=== PATIENT | male | born 1965 | race Caucasian/White ===

== ENCOUNTER 2025-04-05 14:30 | Inpatient (IN) | payer MEDICAID ==
[~2025-04-05] VITALS: Ht 177.8 cm; Wt 88.0 kg
--- NOTE | 2025-04-05 14:42 | Physician Documentation ---
Addendum CHIEF COMPLAINT/HPI: The patient is a 60-year-old male who suffered a syncopal episode while at [facility] it approximately 1:40 p.m. today. He is on Eliquis for a right lower extremity DVT since about December of this year. He also has a pacemaker. EMS was summoned and noted a right-sided facial droop. He also has left arm and left leg weakness. REVIEW OF SYSTEMS: Unable to obtain due to acuity PHYSICAL EXAMINATION: Vitals and nursing note reviewed. Constitutional: General: Patient is awake, alert, oriented x 4 in no acute distress and well appearing. Speech is clear and lucid. Appearance: Normal appearance. Patient is not ill-appearing, toxic-appearing or diaphoretic. HENT: Head: Normocephalic and atraumatic. Mouth: Mucous membranes are moist. Pharynx: Oropharynx is clear. Eyes: General: No scleral icterus. Extraocular Movements: Extraocular movements intact. Pupils: Pupils are equal, round, and reactive to light. Neck: Supple, no Kernig or Brudzinski sign. Cardiovascular: Rate and Rhythm: Normal rate and regular rhythm. Heart sounds: No murmur heard. Pulmonary: Effort: No respiratory distress. Breath sounds: No wheezing, rhonchi or rales. Abdominal: General: There is no distension. Palpations: There is no fluid wave, hepatomegaly or mass. Tenderness: There is no abdominal tenderness. There is no guarding. Musculoskeletal: General: No swelling or deformity. Skin: Coloration: Skin is not jaundiced. Findings: No erythema or rash. Neurological examination: GCS: E-4, V-5, M-6 Motor strength: Left arm, left leg weakness. Just able to resist gravity in the left leg. Left hand machine engineer noticeably weaker than right-hand machine engineer Sensory: Intact maintainer central office: Right-sided facial droop Equilibratory intact MEDICAL DECISION MAKING: This 60-year-old male presents with symptoms of stroke. He is taking Eliquis. He presents approximately 45 minutes after onset of symptoms. I promptly initiated the level one stroke alert. Tele neurology recommended admitting the patient for further stroke workup. Departure Disposition: ADMITTED INPATIENT Admission Level of Care: Neuro with Tele Impression: Primary Impression: Cerebrovascular accident Condition: Stable DE MARGO CARREON MD Apr 05, 2025 14:42
[2025-04-05 14:47] LABS: MEAN PLATELET VOLUME 7.7 FL (7.4-10.4); RED CELL DISTRIBUTION WIDTH 14.3 % (11.5-14.5)
[2025-04-05 14:54] LABS: CREATININE 1.48 MG/DL (0.60-1.10); TOTAL CARBON DIOXIDE 25.6 MMOL/L (24-32); eGFR 48 ML/MIN
--- NOTE | 2025-04-05 15:01 | RADIOLOGY REPORT ---
EXAM: CT CT STROKE ALERT INDICATION: Stroke Alert TECHNIQUE: CT of the head without intravenous contrast. Radiation Dose : 1. Head: CT Dose: CTDI volume is 58.4 mGy. Dose-length product is 1073.2 mGy*cm The dose indicators for CT are the volume Computed Tomography (CT) Dose Index (CTDIvol) and the Dose Length Product (DLP), and are measured in units of mGy and mGy-cm, respectively. These indicators are not patient dose, but values generated from the CT scanner acquisition factors. The report includes radiation exposure data for exposures received during this examination. COMPARISON: None FINDINGS: There is no evidence of acute intracranial hemorrhage, extra-axial collection, mass effect, midline shift, herniation or hydrocephalus. The ventricles, sulci and cisterns are age appropriate. The moulton-white differentiation is intact. The visualized paranasal sinuses and mastoid air cells are clear. The surrounding soft tissues and osseous structures are unremarkable. IMPRESSION: No acute intracranial abnormality. Radiation optimization: All CT scans at this facility use at least one of these dose optimization techniques: automated exposure control? mA and/or kV adjustment per patient size (includes targeted exams where dose is matched to clinical indication)? or iterative reconstruction.
--- NOTE | 2025-04-05 15:08 | RADIOLOGY REPORT ---
CHEST RADIOGRAPH Indication: Stroke Alert Technique: Single frontal view of the chest was obtained COMPARISON: CT CT STROKE ALERT on DOS: 04/05/25 FINDINGS: Lines and Tubes: Left chest wall pacemaker Lungs: Clear Pleura: No effusion. No pneumothorax. Cardiomediastinal contours: Unremarkable Bones: Unremarkable IMPRESSION: No acute disease.
[2025-04-05 15:12] LABS: APTT 25 SECONDS (22-32); INR 1.1 INR
--- NOTE | 2025-04-05 15:15 | RADIOLOGY REPORT ---
EXAM: CT CTA NECK/HEAD CLINICAL HISTORY: CVA TECHNIQUE: CT angiogram of the head and neck was performed without and with intravenous contrast. 3D MIP reconstructed images were created and archived on the PACS system. This exam was performed according to our departmental dose optimization program. Up-to-date CT equipment and radiation dose reduction techniques are utilized as appropriate. CTDI: 23.8+ 14.73; DLP: 589.24 COMPARISON: CT CT STROKE ALERT on DOS: 04/05/25 FINDINGS: CTA head: The distal internal carotid, vertebral, and basilar arteries are patent without focal narrowing or occlusion. The anterior, middle, and posterior cerebral arteries are patent without focal narrowing. No aneurysm or arteriovenous malformation is identified. CTA neck: The aortic arch vessel origins are widely patent. Mild mixed plaque in the aortic arch. The common carotid and cervical portions of the internal carotid and vertebral arteries are patent without focal narrowing according to NASCET criteria. Dominant right vertebral artery. No aneurysm, AVM, or dissection is identified. The cervical soft tissues are unremarkable. Small Mastoid air cell effusions. Mild mucosal thickening of the bilateral maxillary sinuses. The lung apices are clear. Moderate multilevel cervical spondylosis. There is a battery pack in the left anterior chest wall and left-sided pacer leads. IMPRESSION: 1. Widely patent arteries in the head and neck without large vessel occlusion, significant stenosis, aneurysm, dissection, or AVM.
[2025-04-05] MEDS: ondansetron/PF 4mg/2ml inj IV ONE (15:19)
--- NOTE | 2025-04-05 15:23 | ELECTROCARDIOGRAPH REPORT ---
[facility] Test Date: 2025-04-05 Test Time: 15:19:29 Pat Name: VINICIUS CARDONA Department: [facility] Patient ID: [id number] Room: ORTHO 4012 Gender: M Chef Manager: : 1965 Requested By: MARGO DOLL Order Number: [id number] Reading MD: Dr. Roosevelt Zhou Measurements Intervals [place] Rate: 60 P: 0 [place]: 159 QRS: -60 QRSD: 106 T: 60 QT: 401 QTc: 401 Interpretive Statements Atrial-paced complexes Left anterior fascicular block Abnormal R-wave progression, late transition ST elevation, consider inferior injury Electronically Signed On 04-05-2025 18:50:[address] Roosevelt Zhou Please click the below link to view image of tracing.
--- NOTE | 2025-04-05 15:43 | [facility] CONSULT REPORT ---
[facility] Procedure Note [facility] Procedure Note Consult [facility] Note # Demographics Consult Type: Acute Stroke Level 1 (0-4.5 hrs) Patient Location: Emergency Room First Name: BRENDAN Last Name: VINICIUS Date of : 1965 Age: 60 Gender: Male Facility: [facility] Time of Initial Page (): 04/05/2025 14:48 First Contact with Site (): 04/05/2025 14:49 # HPI Chief Complaint: - weakness (focal) History: 60 M presented with L sided weakness at after an episode of syncope. He said he was at [facility] when he had an episode of syncope followed by L sided weakness. He did not have any weakness prior to falling. He is endorsing double vision. He feels numbness on the L and is having some trouble concentrating. He is on Eliquis and is compliant with his medications. Last Known Normal: 1:40 PM # Scores Time of exam and NIHSS (): 04/05/2025 15:05 Level of Consciousness 1a: [0] = Alert; keenly responsive LOC Questions 1b: [0] = Answers both questions correctly LOC Commands 1c: [0] = Performs both tasks correctly Best Gaze 2: [0] = Normal Visual 3: [0] = No visual loss Facial Palsy 4: [2] = Partial paralysis Motor Arm Left 5a: [2] = Some effort against gravity Motor Arm Right 5b: [0] = No drift Motor Leg Left 6a: [3] = No effort against gravity Motor Leg Right 6b: [0] = No drift Limb Ataxia 7: [0] = Absent Sensory 8: [1] = Ixnx-[id number]-qvmillpl sensory loss Best Language 9: [0] = No aphasia Dysarthria 10: [0] = Normal Extinction and Inattention 11: [0] = No abnormality NIHSS Total: 8 # Exam SBP: 141 DBP: 73 # PMH-FH-SH Past Medical History: DVT Medications: - NOAC # Data Head CT: - no bleed - per radiologist read CTA Head: - no large vessel occlusion - per radiologist read CTA Neck: - patent vessels - per radiologist read # Assessment Impression: - Ischemic Stroke (Acute) # Plan Thrombolytic/Intervention: NOT IV Thrombolysis or IA Intervention candidate Thrombolytic Exclusion (< 3 hour window): - actively on NOAC Intraarterial Exclusion: - no large vessel occlusion (LVO) Labs: - CBC - comprehensive metabolic panel - hemoglobin A1c - lipid panel - ua - TSH - troponin Imaging: (urgency: routine): - MRI Brain without contrast Diagnostic Test: - echo with bubble study Therapy/Evaluation: - PT/OT evaluation - NPO until swallow evaluation Medication: - anticoagulation with NOAC - start statin with goal of LDL < 70 Other: - If patient has any neurological deterioration please call me back immediately - telemetry monitoring - permissive hypertension - I have discussed my recommendations with the referring provider - LDL < 70 Disposition: admit # Logistics Attestation of consult completion: The patient is located at: [facility]. Facility staff participated in the visit. I performed this telemedicine visit from my offsite office utilizing interactive 2 way audio and visual telecommunication technology at the request of the onsite emergency room provider. Total time spent in telemedicine encounter: I spent 30 minutes reviewing clinical data and/or imaging, obtaining history, examining the patient, communicating with the onsite care team, and in preparation of this report. # Demographics First Name: BRENDAN Last Name: VINICIUS Facility: [facility] Electronically signed at 04/05/2025 15:42 ([place] Time) by Jose Justin MD Neuro Consult Order placed for: Yes JOSE JUSTIN MD Apr 05, 2025 15:43
[2025-04-05] MEDS ORDERED: magnesium sulf-water 2g/50mL 50 ML IV PRN (16:10)
[2025-04-05] MEDS ORDERED: magnesium hydroxide 30ml (MOM) UD suspension PO PRN (16:10)
[2025-04-05] MEDS ORDERED: ondansetron/PF 4mg/2ml inj IV PRN (16:10)
[2025-04-05] MEDS ORDERED: potassium Cl 40MEQ/1/2NS 520ml 520 ML IV PRN (16:10)
[2025-04-05] MEDS ORDERED: acetaminophen 650mg rectal suppository RC PRN (16:10)
[2025-04-05] MEDS ORDERED: potassium Cl 20 mEq SR tablet PO PRN ×2 (16:10)
[2025-04-05] MEDS ORDERED: mag hydrox/Alum hydrox/simeth 30ml oral suspension PO PRN (16:10)
[2025-04-05] MEDS ORDERED: bisacodyl 10mg suppository rectal RC PRN (16:10)
[2025-04-05] MEDS ORDERED: ondansetron 4mg rapidly disintigrating tab PO PRN (16:10)
[2025-04-05] MEDS ORDERED: magnesium Cl slow-release 64mg tablet PO PRN (16:10)
[2025-04-05] MEDS ORDERED: magnesium sulf-water 4G/100mL 100 ML IV PRN (16:10)
[2025-04-05 17:16] LABS: CHOL/HDL RATIO 3.0 (0.00-4.99); LDL CHOLESTEROL 70 MG/DL (50-100)
--- NOTE | 2025-04-05 17:44 | CARDIOLOGY REPORT ---
APPROVED REPORT EXAM: Comprehensive 2D, Doppler, and color-flow Echocardiogram with saline. Patient Location: ED3 Blood Pressure: 135/72 mmHg Heart Rate: 60 bpm Rhythm: NSR Indications Syncope CVA/TIA Pacemaker Tile Presser is Dr. Perdomo in [place] No previous echo 2D Dimensions LA Diam 3.0 cm IVSd 1.1 (0.7-1.1cm) LVDd 4.3 cm PWd 1.1 (0.7-1.1cm) IVSs 1.3 (0.8-1.2cm) LVDs 2.8 (2.5-4.0cm) Aortic Root(2D) 3.3 cm PWs 1.2 (0.8-1.2cm) LVOT Diameter 2.14 (1.8-2.4cm) LVEF(%) 65.0 (>50%) Ao Asc Diam. 3.40 cm IVC 14.20 mm FS (%) 35.3 % SV 52.6 ml CO 3.2 L/min M-Mode Dimensions MV EPSS 1.1 (<0.5cm) Aortic Valve AoV Peak Saurabh. 162.6 cm/s AoV VTI 29.4 cm AO Peak GR. 10.6 mmHg AO Mean GR. 5 mmHg LVOT VTI 16.84 cm LVOT Peak Saurabh. 110.4 cm/s YAYA(VTI)/BSA 2.05 cm2/m2 YAYA (VTI) 2.05 cm2 AV DI 0.57 % Mitral Valve MV E Velocity 56.2 cm/s MV Peak Gr. 2 mmHg MV DECEL TIME 240 ms MV A Velocity 69.8 cm/s MV PHT 52 ms E/A Ratio 0.8 MVA (PHT) 4.23 cm2 MV VMax 77.7 cm/s TDI Medial E' P. V 8.43 cm/s E/Medial E' 6.7 Tricuspid Valve TR P. Velocity 216 cm/s RAP ESTIMATE 10 mmHg TR Peak Gr. 19 mmHg RVSP 29 mmHg Pulmonary Vein S1 Velocity 38.7 cm/s D2 Velocity 28.9 cm/s PVa Velocity 28.9 cm/s PVa Duration 116 msec LEFT VENTRICLE Normal LV size and wall thickness. Overall systolic function is normal. LVEF is 60%. RIGHT VENTRICLE RV appears mildly dilated with normal contractility. Pacemaker wire in right heart. ATRIA The left atrium size is normal. Saline study was performed with 2 IV injections of 10 ccs of agitated normal saline at rest, with cough, and with valsalva. Negative saline study for right to left flow. AORTIC VALVE Trileaflet AV appears sclerotic without stenosis. Mild insufficiency. MITRAL VALVE MV is thickened with mild annular thickening and no stenosis. Trace mitral regurgitation. TRICUSPID VALVE The tricuspid valve is normal in structure. Trace tricuspid regurgitation. PULMONIC VALVE The pulmonary valve is normal in structure. Trace pulmonic insufficiency. GREAT VESSELS The aortic root is normal in size. The IVC is normal in size and collapses >50% with inspiration. PERICARDIUM There is no pericardial effusion. Other Information Study Quality: Adequate Conclusion Normal LV size and wall thickness. Overall systolic function is normal. LVEF is 60%. RV appears mildly dilated with normal contractility. Pacemaker wire in right heart. The left atrium size is normal. Saline study was performed with 2 IV injections of 10 ccs of agitated normal saline at rest, with cough, and with valsalva. Negative saline study for right to left flow. Trileaflet AV appears sclerotic without stenosis. Mild insufficiency. MV is thickened with mild annular thickening and no stenosis. Trace mitral regurgitation. The tricuspid valve is normal in structure. Trace tricuspid regurgitation. The pulmonary valve is normal in structure. Trace pulmonic insufficiency. There is no pericardial effusion.
[2025-04-05 18:00] VITALS: BP 141/75; PULSE 60; RESP 13; TEMP 97.6; O2SAT 100
--- NOTE | 2025-04-05 18:40 | HISTORY AND PHYSICAL-Residence ---
History & Physical Providers to CC Resident Creating Document: MICHAELA GARCIA, RES ~ History of Present Illness Reason for Admit\Complaint: Acute ischemic stroke History of Present Illness The patient is a 60-year-old male with past medical history of hypertension, CKD stage 3, cervical stenosis, sick sinus syndrome SP ppm placement, DVT, was brought to the ED by EMS from [facility]. The patient only remembers bits and pieces of what happened today. He remembers walking out of [facility], felt dizzy and tripped over something, manage to get to his truck, drove for about 20 ft but felt dizzy which is why he parked and called for help. He also reported having pounding headache and blurry vision, both of which are getting better now. He was unable to feel or move his left arm and leg. Allergies: Coded Allergies: codeine (Verified Allergy, Severe, HIVES, 04/05/25) Uncoded Allergies: TAPE (Allergy, Unknown, RASH, 04/05/25) Past Medical History Past Medical History Hypertension CKD stage 3 Unspecified thyroid issue Sick sinus syndrome s/p permanent pacemaker placement DVT in December, Skin cancers History of [place] when he was 35, no stents placed Past Surgical History Surgical History Comment ACL repair right knee Achilles tendon repair Left middle finger amputation Tonsillectomy Back surgery Permanent pacemaker placement in December, Esophageal dilation x3 Family history: Grandmother-lung cancer, was a smoker Mother-CKD Past Social History Social History Comment Patient moved to [place] in August,. Currently living with some friends in [place]. PCP - [facility] Institutional Cook - Dr. Perdomo in [place] Follows up with a classroom assistant, ?Dr. Aggarwal in [place] Also follows up with [facility] for cervical stenosis and is scheduled to follow up with a neurologist Used to follow up with a alliance director before he moved up here Ambulates independently without assistance Substance use history: Never smoker. Quit drinking alcohol since December,. Was only an occasional drinker before that. Denies other illicit drug abuse. ROS ROS Constitutional: No fever, dizziness, weakness. no change in appetite/weight HEENT: Reports blurring of the vision, No sore throat, epistaxis, tinnitus Cardiovascular: No chest pain/discomfort, palpitations. No pedal edema Respiratory: No sob, cough,, hemoptysis Gastrointestinal: No abdominal pain, nausea, vomiting. No diarrhea, constipation, melena. Genitourinary: No frquency, urgency, incontinence, nocturia. No dysuria, hematuria Musculoskeletal: No arthralgia, myalgia Endocrine: No fatigue, polydipsia, polyuria. No heat or cold intolerance Neurologic: Reports headache, dizziness, weakness, numbness and tingling of left leg and arm Psychiatric: No hallucinations/delusions, no anhedonia, no suicidal ideation Hematologic: No bleeding or bruises Exam Vitals: Vital Signs Date Time Temp Pulse Resp B/P (MAP) Pulse Ox O2 Delivery O2 Flow Rate FiO2 04/05/25 18:00 97.6 60 13 141/75 (97) 100 Room Air 04/05/25 15:41 0 General: Elderly male, alert and oriented x4, not in acute distress Head: Normocephalic with an atraumatic Eyes: Pupils- 3mm, reacting to light, conjunctiva- anicteric Nose and throat: No polyps, septum- normal, no mucosal ulcers, moist mucous membranes Neck: Supple, no lymphadenopathy, no carotid bruit Respiratory: No use of accessory muscles of respiration, Bilateral normal vesicular breath sounds heard. 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 Skin: warm and dry, no rash, no purpura Neuro: MENTAL STATUS: AAOx3 LANG/SPEECH: Fluent, intact naming, repetition & comprehension CRANIAL NERVES: II: Pupils equal and reactive, no RAPD, visual field blurry with decreased peripheral vision III, IV, : EOM intact, no gaze preference or deviation V: normal on right side, numbness on left side VII: Left-sided facial droop VIII: normal hearing to speech MOTOR: 5/5 in both right upper and lower extremities, 4/5 in left hand, forearm, 3/5 in left shoulder and arm, 3/5 in left lower extremity REFLEXES: 2/4 in right upper and lower extremities, diminished reflexes on left side SENSORY: Normal to touch, temperature & pin prick in right upper and lower extremities and right side of the trunk, diminished sensation on the left Gait not tested Diagnostic Data Last Recorded Lab Results: 04/05/25 1435 04/05/25 1435 Diagnostic Data: Laboratory Tests Test 04/05/25 14:35 Prothrombin Time 11.1 SECONDS (9.0-12.0) INR International Normalized Ratio 1.1 INR Activated Partial Thromboplast Time 25 SECONDS (22-32) Coagulation Comments Advance Care Planning Advanced Care plannin - 30 Minutes Additional Plan The patient is a 60-year-old male with past medical history of hypertension, CKD stage 3, DVT, sick sinus syndrome s/p ppm, presented to the ED with symptoms of stroke. He is being admitted into the hospital for further evaluation and management. Plan: Left-sided weakness Acute ischemic stroke NIHSS 8 CT head negative for acute intracranial abnormalities. CTA head and neck showed no large vessel occlusion. Tele neurology consultation taken, recommended MRI brain without contrast, echocardiogram with bubble study. Permissive hypertension till 24-48 hours. Follow up with HB A1c, LDL. Continue home Eliquis and start atorvastatin. Continue physical therapy. NPO until swallow evaluation. Depression and fall precautions. Neuro checks q.4h. History of DVT 12/2024 Continue Eliquis 5 mg b.i.d. Continue follow up with the classroom assistant. Hypertension Permissive hypertension till 180/110 mmHg for next 24-48 hours. Unspecified thyroid condition Follow up with TSH. CKD stage 3 GFR 48, creatinine 1.48. Continue to monitor kidney function. Sick sinus syndrome s/p permanent pacemaker placement Continue follow up with the atomic fuel assembler. Heart rate currently 60, sinus. Code Status: Full code DVT Prophylaxis: Eliquis Analgesia/Sedation: Acetaminophen Lines/Tubes: PIV Nutrition: NPO till swallow evaluation PT: Ordered Prognosis: Guarded Disposition: We will admit the patient into medical [facility]ohan. Follow up with MRI. Continue Eliquis. Michaela Garcia MD Internal Medicine Resident PGY-2 The patient was seen, examined and discussed with the attending physician, Dr. Gongora. Date of Service: Apr 05, 2025 Billing Provider: RYDER GONGORA MD,MICHAELA COOK, RES Apr 05, 2025 18:39
[2025-04-05] MEDS: normal saline 1000ml 1,000 ML IV SCH (19:58)
[2025-04-05 20:00] VITALS: BP_SYST 116; BP_SYST 99; BP_DIAS 53; BP_DIAS 61; PULSE 64; PULSE 67; RESP 15; O2SAT 96
[2025-04-05] MEDS: docusate sod 100mg capsule PO SCH (20:00)
[2025-04-05] MEDS: K and/or MAG REPLACEMENT MC SCH (20:00)
[2025-04-05 20:50] LABS: LEUKOCYTE ESTERASE ,URINE NEGATIVE (Neg); NITRITES, URINE NEGATIVE (Neg); OCCULT BLOOD,URINE NEGATIVE (Neg)
[2025-04-05 20:56] LABS: URINE AMPHETAMINE SCREEN NEGATIVE (Neg); URINE BARBITUATE SCREEN NEGATIVE (Neg); URINE BENZODIAZEPINES SCREEN NEGATIVE (Neg); URINE CANNABINOID SCREEN NEGATIVE (Neg); URINE COCAINE SCREEN NEGATIVE (Neg); URINE METHADONE SCREEN NEGATIVE (Neg); URINE OPIATE SCREEN NEGATIVE (Neg); URINE PHENCYCLIDINE SCREEN NEGATIVE (Neg)
[2025-04-05 21:01] LABS: UA COLLECTION TYPE NON-SPECIFIED
[2025-04-05] MEDS ORDERED: TAMS-55 (21:17)
[2025-04-05] MEDS ORDERED: ATOR40TA72 PO (21:17)
[2025-04-05] MEDS ORDERED: SERT-433 PO (21:17)
[2025-04-05] MEDS ORDERED: ACET-75 (21:17)
[2025-04-05] MEDS ORDERED: GABA300T28 (21:17)
[2025-04-05] MEDS ORDERED: LOSA50TA64 PO (21:17)
[2025-04-05] MEDS ORDERED: PANT40TA54 PO (21:17)
[2025-04-05] MEDS ORDERED: MECL-302 (21:17)
[2025-04-05] MEDS ORDERED: APIX5TAB3 PO (21:17)
[2025-04-05 22:00] VITALS: BP 116/53; PULSE 67; RESP 11; TEMP 97.2; O2SAT 98
[2025-04-06] VITALS (7 sets, daily range): BP systolic 93–124; BP diastolic 52–76; PULSE 60–64; RESP 14–18; TEMP 97.8–98.9; O2SAT 95–98
[2025-04-06 06:20] LABS: MEAN PLATELET VOLUME 8.6 FL (7.4-10.4); RED CELL DISTRIBUTION WIDTH 14.2 % (11.5-14.5)
[2025-04-06 06:50] LABS: CREATININE 1.50 MG/DL (0.60-1.10); PHOSPHORUS 4.0 MG/DL (2.3-4.5); TOTAL CARBON DIOXIDE 21.4 MMOL/L (24-32); eCRCL 53 ML/MIN; eGFR 48 ML/MIN
[2025-04-06] MEDS ORDERED: GABA300T28 PO (07:37)
[2025-04-06] MEDS ORDERED: TAMS-55 PO (07:37)
--- NOTE | 2025-04-06 08:01 | ELECTROCARDIOGRAPH REPORT ---
[facility] Test Date: 2025-04-06 Test Time: 07:40:07 Pat Name: VINICIUS CARDONA Department: ORTHO 4S Room: [place] [address] A Gender: M Director Compensation: : 1965 Requested By: MARGO DOLL Order Number: [id number] Reading MD: Dr. JAREK Mercedes Measurements Intervals [place] Rate: 62 P: 0 [place]: 201 QRS: -54 QRSD: 110 T: 27 QT: 407 QTc: 414 Interpretive Statements Atrial-paced complexes Left anterior fascicular block Abnormal R-wave progression, late transition Electronically Signed On 04-06-2025 16:50:[address] JAREK Mercedes Please click the below link to view image of tracing.
--- NOTE | 2025-04-06 11:46 | PROGRESS NOTE- Residence ---
Progress Note - Resident Providers to CC Resident Creating Document: MICHAELA GARCIA, RES ~ Antibiotic Timeout Antibiotic Ordered?: No Subjective The patient was seen and examined at bedside today. He does not have any complaints. His vision has improved but is still blurry. He is able to lift his left arm but has not completely regained his function. No acute events overnight. MRI could not be done today as the DART nurse was not available to check his pacemaker. Objective Vital Signs Date Time Temp Pulse Resp B/P (MAP) Pulse Ox O2 Delivery O2 Flow Rate FiO2 04/06/25 10:00 97.8 60 15 115/62 (79) 97 Room Air 04/06/25 08:26 0.0 Result Diagram: 04/06/25 0549 04/06/25 0549 Elderly male, alert and oriented x4, not in acute distress Head: Normocephalic with an atraumatic Eyes: Pupils- 3mm, reacting to light, conjunctiva- anicteric Nose and throat: No polyps, septum- normal, no mucosal ulcers, moist mucous membranes Neck: Supple, no lymphadenopathy, no carotid bruit Respiratory: No use of accessory muscles of respiration, Bilateral normal vesicular breath sounds heard. 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 Skin: warm and dry, no rash, no purpura Neuro: MENTAL STATUS: AAOx3 LANG/SPEECH: Fluent, intact naming, repetition & comprehension CRANIAL NERVES: II: Pupils equal and reactive, visual field blurry with decreased peripheral vision, improved from yesterday III, IV, : EOM intact, no gaze preference or deviation V: normal on right side, numbness on left side VII: Left-sided facial droop VIII: normal hearing to speech MOTOR: 5/5 in both right upper and lower extremities, 4/5 in left hand, forearm, 3/5 in left shoulder and arm, 3/5 in left lower extremity REFLEXES: 2/4 in right upper and lower extremities, diminished reflexes on left side SENSORY: Normal to touch, temperature & pin prick in right upper and lower extremities and right side of the trunk, diminished sensation on the left Gait not tested Coagulation Studies Laboratory Tests Test 04/05/25 14:35 Prothrombin Time 11.1 SECONDS (9.0-12.0) INR International Normalized Ratio 1.1 INR Activated Partial Thromboplast Time 25 SECONDS (22-32) Coagulation Comments Assessment Assessment The patient is a 60-year-old male with past medical history of hypertension, CKD stage 3, DVT, sick sinus syndrome s/p ppm, presented to the ED with symptoms of stroke. He is being admitted into the hospital for further evaluation and management. Plan Plan Left hemiparesis Acute ischemic stroke NIHSS 8 CT head negative for acute intracranial abnormalities. CTA head and neck showed no large vessel occlusion. Tele neurology consultation taken, recommended MRI brain without contrast, echocardiogram with bubble study. Permissive hypertension till 24-48 hours. Follow up with HB A1c, LDL. Continue home Eliquis and start atorvastatin 40 mg daily. Blood pressures are currently soft. Started the patient on NS at 70 ml/hr to maintain blood pressures. PRN meclizine for dizziness and vertigo. Continue physical therapy. Speech therapy done - cleared for regular textured diet. Depression and fall precautions. Neuro checks q.4h. History of DVT 12/2024 Continue Eliquis 5 mg b.i.d. Continue follow up with the strategy execution consultant. Hypertension Permissive hypertension till 180/110 mmHg for next 24 hours. Unspecified thyroid condition TSH with in normal range. Continue outpatient follow up. CKD stage 3 GFR 48, creatinine 1.50. Continue to monitor kidney function. Sick sinus syndrome s/p permanent pacemaker placement Continue follow up with the windsmith. Heart rate currently 60, sinus. Code Status: Full code DVT Prophylaxis: Eliquis Analgesia/Sedation: Acetaminophen Lines/Tubes: PIV Nutrition: NPO till swallow evaluation PT: Post acute care Prognosis: Guarded Disposition: We will admit the patient into [facility]. Follow up with MRI. Continue Eliquis. Michaela Garcia MD Internal Medicine Resident PGY-2 The patient was seen, examined and discussed with the attending physician, Dr. Gongora. Date of Service: Apr 06, 2025 Billing Provider: RYDER GONGORA MD,MICHAELA COOK, RES Apr 06, 2025 11:46
[2025-04-06] MEDS: pantoprazole 40mg Tablet.DR PO SCH (11:48)
[2025-04-07 05:00] VITALS: BP 114/78; PULSE 62; RESP 17; TEMP 98.2; O2SAT 96
[2025-04-07 06:05] LABS: MEAN PLATELET VOLUME 7.9 FL (7.4-10.4); RED CELL DISTRIBUTION WIDTH 14.3 % (11.5-14.5)
[2025-04-07 06:29] LABS: CREATININE 1.67 MG/DL (0.60-1.10); PHOSPHORUS 3.7 MG/DL (2.3-4.5); TOTAL CARBON DIOXIDE 29.1 MMOL/L (24-32); eCRCL 48 ML/MIN; eGFR 42 ML/MIN
[2025-04-07 10:00] VITALS: BP 129/75; PULSE 60; RESP 16; TEMP 98.6; O2SAT 96
[2025-04-07 10:16] VITALS: BP_SYST 112; BP_SYST 122; BP_SYST 129; BP_DIAS 60; BP_DIAS 68; BP_DIAS 75; PULSE 60; PULSE 61; PULSE 64
--- NOTE | 2025-04-07 15:22 | RADIOLOGY REPORT ---
EXAM: MR MRI HEAD HISTORY: cva TECHNIQUE: Multiplanar and multisequence MR imaging of the head was performed. COMPARISON: CT CTA NECK/HEAD on DOS: 04/05/25, CT CT STROKE ALERT on DOS: 04/05/25 FINDINGS: The ventricles and subarachnoid spaces are normal in size and configuration. Brain parenchyma is normal in signal. There is no midline shift or mass effect. The vascular flow-voids are unremarkable. Diffusion weighted imaging is not indicative of acute or recent infarct. Bilateral mastoid air cell effusions. Mucous retention cyst or polyp in the right maxillary sinus IMPRESSION: 1. No acute or recent infarct.
--- NOTE | 2025-04-07 16:25 | PROGRESS NOTE- Residence ---
Progress Note - Resident Providers to CC Resident Creating Document: MICHAELA GARCIA, RES ~ Antibiotic Timeout Antibiotic Ordered?: No Subjective The patient was seen and examined at bedside today. He does not have any complaints. His vision and left-sided weakness has improved significantly compared to admission. He is to get an MRI today. He still complains of headache. Tramadol ordered. Objective Vital Signs Date Time Temp Pulse Resp B/P (MAP) Pulse Ox O2 Delivery O2 Flow Rate FiO2 04/07/25 10:16 60 129/75 (93) 64 122/68 (86) 61 112/60 (77) 04/07/25 10:00 98.6 16 96 Room Air 04/07/25 08:00 0.0 Result Diagram: 04/07/2552204/07/25522 Elderly male, alert and oriented x4, not in acute distress Head: Normocephalic with an atraumatic Eyes: Pupils- 3mm, reacting to light, conjunctiva- anicteric Nose and throat: No polyps, septum- normal, no mucosal ulcers, moist mucous membranes Neck: Supple, no lymphadenopathy, no carotid bruit Respiratory: No use of accessory muscles of respiration, Bilateral normal vesicular breath sounds heard. 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 Skin: warm and dry, no rash, no purpura Neuro: MENTAL STATUS: AAOx3 LANG/SPEECH: Fluent, intact naming, repetition & comprehension CRANIAL NERVES: II: Pupils equal and reactive, visual field blurry with decreased peripheral vision, improved from yesterday III, IV, : EOM intact, no gaze preference or deviation V: normal on right side, numbness on left side VII: Left-sided facial droop VIII: normal hearing to speech MOTOR: 5/5 in both right upper and lower extremities, 4/5 in left hand, forearm, 4/5 in left shoulder and arm, 3/5 in left lower extremity REFLEXES: 2/4 in right upper and lower extremities, diminished reflexes on left side SENSORY: Normal to touch, temperature & pin prick in right upper and lower extremities and right side of the trunk, diminished sensation on the left Gait not tested Coagulation Studies Laboratory Tests Test 04/05/25 14:35 Prothrombin Time 11.1 SECONDS (9.0-12.0) INR International Normalized Ratio 1.1 INR Activated Partial Thromboplast Time 25 SECONDS (22-32) Coagulation Comments Assessment Assessment The patient is a 60-year-old male with past medical history of hypertension, CKD stage 3, DVT, sick sinus syndrome s/p ppm, presented to the ED with symptoms of stroke. He is being admitted into the hospital for further evaluation and management. Plan Plan Left hemiparesis TIA, ABCD2 score 6 (High 2 day stroke risk) Acute ischemic stroke, ruled out NIHSS 8 CT head negative for acute intracranial abnormalities. CTA head and neck showed no large vessel occlusion. MRI head showed no acute or recent infarct. Echo showed no right to left flow. LDL 70, HbA1c 5.2. Continue home Eliquis and start atorvastatin 40 mg daily. Blood pressures are currently soft. Started the patient on NS at 70 ml/hr to maintain blood pressures. Orthostatic vitals positive - 1L of NS bolus ordered. PRN meclizine for dizziness and vertigo. Continue physical therapy. Speech therapy done - cleared for regular textured diet. Depression and fall precautions. Neuro checks q.4h. History of DVT 12/2024 Continue Eliquis 5 mg b.i.d. Continue follow up with the imaging system administrator. Hypertension Blood pressures are currently soft. Hold all blood pressure medications. Orthostatic hypotension 1L NS bolus ordered. Re-check tomorrow. Unspecified thyroid condition TSH with in normal range. Continue outpatient follow up. CKD stage 3 GFR 42, creatinine 1.67. Continue to monitor kidney function. Sick sinus syndrome s/p permanent pacemaker placement Continue follow up with the building surveyor. Heart rate currently 60, sinus. Code Status: Full code DVT Prophylaxis: Eliquis Analgesia/Sedation: Acetaminophen Lines/Tubes: PIV Nutrition: 2 gm Na restriction diet PT: Post acute care Prognosis: Guarded Disposition: Continue PT. Possible discharge tomorrow. Monitor orthostatic vitals. Michaela Garcia MD Internal Medicine Resident PGY-2 The patient was seen, examined and discussed with the attending physician, Dr. Gongora. Date of Service: Apr 07, 2025 Billing Provider: RYDER GONGORA MD,MICHAELA COOK, RES Apr 07, 2025 16:25
[2025-04-07] MEDS: normal saline 1000ml 1,000 ML IV ONE (17:03)
[2025-04-07 18:00] VITALS: BP 111/72; PULSE 60; RESP 16; TEMP 97.7; O2SAT 99
[2025-04-07 20:00] VITALS: BP_SYST 112; BP_SYST 113; BP_DIAS 62; PULSE 65; PULSE 66; RESP 16; O2SAT 95
[2025-04-07 22:00] VITALS: BP 138/79; PULSE 63; RESP 14; TEMP 97; O2SAT 98
[2025-04-08] VITALS (7 sets, daily range): BP systolic 102–146; BP diastolic 55–84; PULSE 55–72; RESP 13–16; TEMP 96.8–97.8; O2SAT 96–100
[2025-04-08] MEDS: nicotine 14mg patch - 24hr TD ONE (08:29)
--- NOTE | 2025-04-08 14:55 | PROGRESS NOTE- Residence ---
Progress Note - Resident Providers to CC Resident Creating Document: SARAI HERNANDEZ RES ~ Antibiotic Timeout Antibiotic Ordered?: No Subjective The patient was seen and examined at bedside today. Patient has occasional headache and is still feeling left-sided tingling and numbness, but states almost completely weakness recover. No other symptoms reported since situation. Objective Vital Signs Date Time Temp Pulse Resp B/P (MAP) Pulse Ox O2 Delivery O2 Flow Rate FiO2 04/08/25 10:05 64 143/83 (103) 63 132/74 (93) 64 130/73 (92) 04/08/25 10:00 97.0 15 100 Room Air 04/08/25 08:00 0.0 Result Diagram: 04/07/2552204/07/25 0523 Awake , alert, and oriented x4 HEENT: Atraumatic, normocephalic, EOMI, anicteric sclera ; moist mucous membranes, normal peripheral vision Neck: Trachea midline. Supple, full range of motion, no JVD Cardiac: Regular rhythm, regular rate with no murmurs all over the precordium. Respiratory: Equal breath sounds bilaterally, no tachypnea, no wheezing ,rub or rales, Chest wall is symmetric and without deformity. Gastrointestinal: Abdomen symmetric, non-distended, soft, non-tender, normal bowel sounds x4 quadrant, normoactive, no hepatosplenomegaly Musculoskeletal: No pedal edema Neurological: Mental status exam: alert and consciousness, orientation, memory, speech - Cranial nerve test: Cranial nerves 2-12 intact - Motor system: Normal Nutrition, normal tone, left arm drip, strength is preserved in all other segments, no involuntary movements - Sensory system: Intact - Reflex testing: Biceps, triceps and knee reflexes 2+ - Cerebellar: Normal Skin: Warm and dry Coagulation Studies Laboratory Tests Test 04/05/25 14:35 Prothrombin Time 11.1 SECONDS (9.0-12.0) INR International Normalized Ratio 1.1 INR Activated Partial Thromboplast Time 25 SECONDS (22-32) Coagulation Comments Assessment Assessment The patient is a 60-year-old male with past medical history of hypertension, CKD stage 3, DVT, sick sinus syndrome s/p ppm, presented to the ED with symptoms of stroke. He is being admitted into the hospital for further evaluation and management. Plan Plan 1. TIA, ABCD2 score 6 Stroke-mimic is possible Acute ischemic stroke, ruled out Orthostatic hypotension CT head negative for acute intracranial abnormalities. CTA head and neck showed no large vessel occlusion. MRI head showed no acute or recent infarct. Echo showed no right to left flow Almost completely strength recover, left side paresthesia still present Plan Continue home Eliquis and atorvastatin 40 mg daily. Restarted on Losartan 50mg daily PRN meclizine for dizziness and vertigo. Continue compression stocks Continue physical therapy Awaiting placement 2. History of DVT 12/2024 Continue Eliquis 5 mg b.i.d. Continue follow up with the dean of graduate studies. 3. Hypertension Continue losartan 50 mg after permissive hypertension 4. CKD stage 3b GFR 42, creatinine 1.67., stable since admission Avoid nephrotoxic medications Monitor daily 5. Sick sinus syndrome s/p permanent pacemaker placement Controlled heart rate Continue outpatient follow up with hvac r tech. Code Status: Full code DVT Prophylaxis: Eliquis Analgesia/Sedation: Acetaminophen Lines/Tubes: PIV Nutrition: 2 gm Na restriction diet PT: Post acute care Prognosis: Guarded Disposition: Continue PT. Awaiting placement. Resident attestation The above note has been reviewed and supervised by a senior resident PGY2/PGY3 The patient was seen, examined and discussed with the attending physician, Dr. Tarango. Date of Service: Apr 08, 2025 Billing Provider: RYDER TARANGO MD SOBXUAN,SARAI, RES Apr 08, 2025 14:55
--- NOTE | 2025-04-08 22:50 | CONSULTATION REPORT ---
History of Present Illness Providers to CC ~ Reason for Admit\Admit Dx: Acute ischemic stroke Allergies: Coded Allergies: codeine (Verified Allergy, Severe, HIVES, 04/05/25) Uncoded Allergies: TAPE (Allergy, Unknown, RASH, 04/05/25) Home Medications Home Medications Active Flomax* (Tamsulosin HCl) 0.4 Mg Cap.sr.24h 0.4 Mg PO DAILY 30 Days Gabapentin ER (Gabapentin) 300 Mg Tab.er.24h 300 Mg PO TID 30 Days Reported Atorvastatin Calcium 40 Mg Tablet 40 Tab PO DAILY Losartan Potassium 50 Mg Tablet 50 Tab PO DAILY Sertraline HCl 50 Mg Tablet 50 Tab PO DAILY Pantoprazole Sodium 40 Mg Tablet.dr 40 Tab PO DAILY Acetaminophen 500 Mg Tablet 500 Q6H Eliquis (Apixaban) 5 Mg Tablet 1 Tab PO BID Physical Exam Last Vital Signs Recorded: Temperature: 97.0, Source: Temporal, Heart Rate: 61, Respiratory Rate: 16, BP: 142/82, Pulse Oximetry: 97, Weight: 88.000 Results Diagram Lab Result Diagram: 04/07/2552204/07/25522 Assessment/Plan Additional Plan [place] [facility] Note # Demographics Consult Type: General Neurology Patient Location: Inpatient First Name: VINICIUS Last Name: BRENDAN Date of : 1965 Age: 60 Gender: Male Facility: [facility] Time of Initial Page ( Time): 04/08/2025 22:25 First Contact with Site ( Time): 04/08/2025 22:27 Phone Only Consult: 60-year-old man that presented with some left-sided weakness. I spoke to the provider who indicated that pieces MRI brain was negative but the patient is still symptomatic. I discuss potentially repeating the MRI brain tomorrow sometimes the initial Imaging negative and I also recommended getting an MRI of the cervical spine to make sure that there is not a central cord, disc herniation or foraminal stenosis issue as a cause for the patient's symptoms. The provider was in agreement with this plan Phone Agreement: - phone consult deemed mutually sufficient for patient care # HPI History: 60-year-old man that presented with some left-sided weakness. I spoke to the provider who indicated that pieces MRI brain was negative but the patient is still symptomatic. I discuss potentially repeating the MRI brain tomorrow as sometimes the initial imaging can be negative and I also recommended getting an MRI of the cervical spine to make sure that there is not a central cord, disc herniation or foraminal stenosis issue as a cause for the patient's symptoms. The provider was in agreement with this plan # Plan Other: - If patient has any neurological deterioration please call back immediately # Demographics First Name: VINICIUS Last Name: BRENDAN Facility: [facility] CHRISTINE GEE Jr., MD Apr 08, 2025 22:50
[2025-04-09 06:00] VITALS: BP 142/84; PULSE 62; RESP 16; TEMP 97.9; O2SAT 97
[2025-04-09 08:00] VITALS: BP_SYST 118; BP_SYST 89; BP_SYST 96; BP_DIAS 50; BP_DIAS 61; BP_DIAS 63; PULSE 61; PULSE 62; PULSE 64
[2025-04-09 09:04] LABS: MEAN PLATELET VOLUME 8.5 FL (7.4-10.4); RED CELL DISTRIBUTION WIDTH 14.3 % (11.5-14.5)
[2025-04-09 09:17] LABS: CREATININE 1.41 MG/DL (0.60-1.10); TOTAL CARBON DIOXIDE 28.2 MMOL/L (24-32); eCRCL 57 ML/MIN; eGFR 51 ML/MIN
[2025-04-09 10:00] VITALS: BP 118/63; PULSE 63; RESP 15; TEMP 98.3; O2SAT 98
[2025-04-09] MEDS ORDERED: HYDROcodone/acetaminophen 5mg/325mg tablet PO PRN (10:55)
[2025-04-09] MEDS: normal saline 1000ml 1,000 ML IV ONE (11:23)
--- NOTE | 2025-04-09 13:13 | RADIOLOGY REPORT ---
MR cervical spine HISTORY: persistent left side neurological symptoms TECHNIQUE: MR was performed with a surface coil at 1.5 T magnet. Sagittal, axial and coronal T1 and T2-weighted images were obtained. FINDINGS: Reversal of the normal cervical lordotic curvature . At C2-3 no narrowing of the central canal and neural foramina At C3-4 loss of disc height and signal intensity. Effacement of the anterior cord surface by bulging disc and osteophytes C4-5 loss of disc height and signal intensity. Effacement of the anterior cord surface by bulging disc and osteophytes. C5-6 loss of disc height and signal intensity. Effacement of the thecal sac by bulging disc and osteophytes C6-7 loss of disc height and signal intensity. Effacement of the thecal sac by bulging disc and osteophytes C7-T1 no narrowing of the central canal and neural foramina Cord normal in size and signal intensity IMPRESSION: 1. Diffuse degenerative disc disease is present. At C3-C4 and C4-C5 there is effacement of the anterior cord surface by bulging disc and osteophytes. At C5- C6 and C6-C7 there is effacement of the thecal sac by bulging disc and osteophytes. No cord edema or myelomalacia is present on this study
--- NOTE | 2025-04-09 13:32 | RADIOLOGY REPORT ---
MR brain HISTORY: persistent left side neurological symptoms TECHNIQUE: MR was performed with a surface coil at 1.5 T magnet. Sagittal, axial and coronal T1 and T2-weighted images were obtained. FINDINGS: No areas of restricted diffusion on diffusion-weighted images. No areas of abnormal T2 star signal hypointensity on gradient echo images On FLAIR imaging sequences no areas of T2 signal hyperintensity. Ventricles normal in size and midline in position. No extra-axial fluid collections. Orbits paranasal sinuses sella and cerebellopontine angles unremarkable in appearance. There is mucosal thickening of the mastoid sinus air cells IMPRESSION: 1. There is no acute intracranial pathology in the brain. 2. There is bilateral mastoid sinus disease.
--- NOTE | 2025-04-09 17:52 | PROGRESS NOTE- Residence ---
Progress Note - Resident Providers to CC Resident Creating Document: MICHAELA GARCIA, RES ~ Antibiotic Timeout Antibiotic Ordered?: No Subjective The patient was seen and examined at bedside today. He still continues to have headaches and dizziness. Repeat MRI brain was negative for infarcts and MRI C spine showed diffuse degenerative disease. Tele neuro consult requested again. Objective Vital Signs Date Time Temp Pulse Resp B/P (MAP) Pulse Ox O2 Delivery O2 Flow Rate FiO2 04/09/25 14:23 15 04/09/25 10:00 98.3 63 118/63 (81) 98 Room Air 04/08/25 20:00 0.0 Result Diagram: 04/09/25 0801 04/09/25 0801 Elderly male, alert and oriented x4, not in acute distress Head: Normocephalic with an atraumatic Eyes: Pupils- 3mm, reacting to light, conjunctiva- anicteric Nose and throat: No polyps, septum- normal, no mucosal ulcers, moist mucous membranes Neck: Supple, no lymphadenopathy, no carotid bruit Respiratory: No use of accessory muscles of respiration, Bilateral normal vesicular breath sounds heard. 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 Skin: warm and dry, no rash, no purpura Neuro: MENTAL STATUS: AAOx3 LANG/SPEECH: Fluent, intact naming, repetition & comprehension CRANIAL NERVES: II: Pupils equal and reactive, visual field blurry with decreased peripheral vision, improved from yesterday III, IV, : EOM intact, no gaze preference or deviation V: normal on right side, numbness on left side VII: Left-sided facial droop VIII: normal hearing to speech MOTOR: 5/5 in both right upper and lower extremities, 4/5 in left hand, forearm, 4/5 in left shoulder and arm, 3/5 in left lower extremity REFLEXES: 2/4 in right upper and lower extremities, diminished reflexes on left side SENSORY: Normal to touch, temperature & pin prick in right upper and lower extremities and right side of the trunk, diminished sensation on the left Gait not tested Coagulation Studies Laboratory Tests Test 04/05/25 14:35 Prothrombin Time 11.1 SECONDS (9.0-12.0) INR International Normalized Ratio 1.1 INR Activated Partial Thromboplast Time 25 SECONDS (22-32) Coagulation Comments Assessment Assessment The patient is a 60-year-old male with past medical history of hypertension, CKD stage 3, DVT, sick sinus syndrome s/p ppm, presented to the ED with symptoms of stroke. He is being admitted into the hospital for further evaluation and management. Plan Plan Left hemiparesis TIA, ABCD2 score 6 (High 2 day stroke risk) Acute ischemic stroke, ruled out Cervical degenerative disease Repeat MRI head showed no changes. MRI C-spine showed diffuse degenerative disc disease. At C3-C4 and C4-C5, there is effacement of anterior cord surface by bulging disc and osteophytes. At C5- C6 and C6-C7 there is effacement of the thecal sac by bulging disc and osteophytes. Repeat tele neuro consultation requested. Awaiting recommendations. CT head on 04/05/2025 negative for acute intracranial abnormalities. CTA head and neck showed no large vessel occlusion. MRI head on 04/07/2025 showed no acute or recent infarct. Echo showed no right to left flow. LDL 70, HbA1c 5.2. Continue home Eliquis and start atorvastatin 40 mg daily. Continue physical therapy. Speech therapy done - cleared for regular textured diet. Aspiration and fall precautions. Neuro checks q.4h. History of DVT 12/2024 Continue Eliquis 5 mg b.i.d. Continue follow up with the manufacturing quality technician. Hypertension Blood pressures are currently soft. Hold all blood pressure medications. Orthostatic hypotension 1 L NS bolus ordered today. Repeat blood pressure is stable. Follow up with a repeat orthostatic vitals. Continue NS at 70 ml/hr. Continue compression stockings. PRN meclizine for dizziness and vertigo. We will consider starting the patient on fludrocortisone if he continues to have orthostatic hypotension. Unspecified thyroid condition TSH with in normal range. Continue outpatient follow up. CKD stage 3 GFR 51, creatinine 1.41. Continue to monitor kidney function. Sick sinus syndrome s/p permanent pacemaker placement Continue follow up with the concrete batcher. Heart rate currently in 60s, sinus. Code Status: Full code DVT Prophylaxis: Eliquis Analgesia/Sedation: Acetaminophen Lines/Tubes: PIV Nutrition: 2 gm Na restriction diet PT: Post acute care Prognosis: Guarded Disposition: Continue PT. Awaiting recommendations of tele neurology consultation. Follow up with orthostatic vitals. Michaela Garcia MD Internal Medicine Resident PGY-2 The patient was seen, examined and discussed with the attending physician, Dr. Gongora. Date of Service: Apr 09, 2025 Billing Provider: RYDER GONGORA MD,MICHAELA COOK, RES Apr 09, 2025 17:52
[2025-04-09 18:00] VITALS: BP 134/80; PULSE 61; RESP 16; TEMP 98.3; O2SAT 98
[2025-04-09 20:00] VITALS: BP_SYST 107; BP_SYST 138; BP_SYST 149; BP_DIAS 52; BP_DIAS 78; BP_DIAS 86; PULSE 60; PULSE 61; PULSE 63
[2025-04-09 22:00] VITALS: BP 149/86; PULSE 63; RESP 15; TEMP 97.8; O2SAT 97
[2025-04-10] VITALS (7 sets, daily range): BP systolic 93–147; BP diastolic 52–82; PULSE 61–68; RESP 12–22; TEMP 97.4–98.9; O2SAT 94–98
[2025-04-10] MEDS: normal saline 1000ML IV soln IVB ONE (04:27)
--- NOTE | 2025-04-10 08:53 | [facility] CONSULT REPORT ---
[facility] Procedure Note [facility] Procedure Note Consult [facility] Note # Demographics Consult Type: Follow-Up Phone Call Patient Location: Inpatient First Name: malou Last Name: francisco Date of : 1965 Age: 60 Gender: Male Facility: [facility] Time of Initial Page (): 04/10/2025 08:24 First Contact with Site (): 04/10/2025 08:25 # HPI History: On noac for dvt here with syncope and left sided weakness. MRI brain negative for acute stroke. MRI c-spine showing disc disease. # Data Head CT: - no bleed - per radiologist read CTA Head: - no large vessel occlusion - per radiologist read MRI: - no acute ischemia - per radiologist read mri cspine with degenerative disc disease. # Assessment Impression: - Other Syncope workup recommended Continue noac discuss mri c-spine with spinal surgery team. Culd be mr negative stroke or component of left sided wekaness from the spinal disease. # Plan Diagnostic Test: - echo without bubble study Medication: - start statin with goal of LDL < 70 - anticoagulation with NOAC Other: - If patient has any neurological deterioration please call me back immediately - consult neurosurgery - I have discussed my recommendations with the referring provider # Logistics Attestation of consult completion: The patient is located at: [facility]. I performed this phone consultation from my offsite office Total time spent in telemedicine encounter: I spent 5 minutes in reviewing clinical data and/or imaging, obtaining history, communicating with the onsite care team, and in preparation of this report. # Demographics First Name: malou Last Name: francisco Facility: [facility] Electronically signed at 04/10/2025 08:52 () by Paul Matthew MD Neuro Consult Order placed for: Yes LIGIA MATTHEW MD Apr 10, 2025 08:53
--- NOTE | 2025-04-10 18:09 | PROGRESS NOTE- Residence ---
Progress Note - Resident Providers to CC Resident Creating Document: MICHAELA GARCIA, RES ~ Antibiotic Timeout Antibiotic Ordered?: No Subjective The patient was seen and examined at bedside today. He continues to have headaches and dizziness. Orthostatic vitals are positive. The patient was evaluated by Dr. Suh, neurosurgeon who recommended outpatient follow up for neurosurgery evaluation. Started the patient on p.o. steroids. Objective Vital Signs Date Time Temp Pulse Resp B/P (MAP) Pulse Ox O2 Delivery O2 Flow Rate FiO2 04/10/25 09:51 61 04/10/25 08:00 16 94 Room Air 04/10/25 08:00 121/61 (81) 109/58 (75) 93/54 (67) 04/10/25 06:00 97.4 04/08/25 20:00 0.0 Result Diagram: 04/09/2580004/09/25 08 Elderly male, alert and oriented x4, not in acute distress Head: Normocephalic with an atraumatic Eyes: Pupils- 3mm, reacting to light, conjunctiva- anicteric Nose and throat: No polyps, septum- normal, no mucosal ulcers, moist mucous membranes Neck: Supple, no lymphadenopathy, no carotid bruit Respiratory: No use of accessory muscles of respiration, Bilateral normal vesicular breath sounds heard. 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 Skin: warm and dry, no rash, no purpura Neuro: MENTAL STATUS: AAOx3 LANG/SPEECH: Fluent, intact naming, repetition & comprehension CRANIAL NERVES: II: Pupils equal and reactive, visual field blurry with decreased peripheral vision, improved from yesterday III, IV, : EOM intact, no gaze preference or deviation V: normal on right side, numbness on left side VII: Left-sided facial droop VIII: normal hearing to speech MOTOR: 5/5 in both right upper and lower extremities, 4/5 in left hand, forearm, 4/5 in left shoulder and arm, 4/5 in left lower extremity REFLEXES: 2/4 in right upper and lower extremities, 2/4 reflexes on left side SENSORY: Normal to touch, temperature & pin prick in right upper and lower extremities and right side of the trunk, diminished sensation on the left Plantars negative and pronator drift absent Gait not tested Coagulation Studies Laboratory Tests Test 04/05/25 14:35 Prothrombin Time 11.1 SECONDS (9.0-12.0) INR International Normalized Ratio 1.1 INR Activated Partial Thromboplast Time 25 SECONDS (22-32) Coagulation Comments Assessment Assessment The patient is a 60-year-old male with past medical history of hypertension, CKD stage 3, DVT, sick sinus syndrome s/p ppm, presented to the ED with symptoms of stroke. He is being admitted into the hospital for further evaluation and management. Plan Plan Left hemiparesis TIA, ABCD2 score 6 MRI negative stroke cannot be ruled out Cervical degenerative disease Possible vertebro basilar insufficiency Repeat MRI head showed no changes. MRI C-spine showed diffuse degenerative disc disease. At C3-C4 and C4-C5, there is effacement of anterior cord surface by bulging disc and osteophytes. At C5- C6 and C6-C7 there is effacement of the thecal sac by bulging disc and osteophytes. Neurology recommended to continue the same treatment and follow up with neurosurgery. Dr. Suh, neurosurgeon was consulted who recommended outpatient follow up for cervical surgery. He suspects myelopathy but unsure why the clinical presentation is not correlating to his symptoms. CT head on 04/05/2025 negative for acute intracranial abnormalities. CTA head and neck showed no large vessel occlusion. MRI head on 04/07/2025 showed no acute or recent infarct. Echo showed no right to left flow. LDL 70, HbA1c 5.2. Continue home Eliquis and start atorvastatin 40 mg daily. Continue physical therapy. Speech therapy done - cleared for regular textured diet. Aspiration and fall precautions. Neuro checks q.4h. History of DVT 12/2024 Continue Eliquis 5 mg b.i.d. Continue follow up with the senior technical project manager. Hypertension Blood pressures are currently soft. Hold all blood pressure medications. Orthostatic hypotension Started the patient on prednisone PO. 1 L NS bolus ordered again today. Continue NS at 70 ml/hr. Continue compression stockings. Lavonne TID meclizine for dizziness and vertigo. Unspecified thyroid condition TSH with in normal range. Continue outpatient follow up. CKD stage 3 GFR 51, creatinine 1.41. Continue to monitor kidney function. Sick sinus syndrome s/p permanent pacemaker placement Continue follow up with the collections associate. Heart rate currently in 60s, sinus. Code Status: Full code DVT Prophylaxis: Eliquis Analgesia/Sedation: Acetaminophen Lines/Tubes: PIV Nutrition: Regular diet PT: Post acute care Prognosis: Guarded Disposition: Continue PT. Awaiting recommendations of tele neurology consultation. Follow up with orthostatic vitals. Michaela Garcia MD Internal Medicine Resident PGY-2 The patient was seen, examined and discussed with the attending physician, Dr. Gongora. Date of Service: Apr 10, 2025 Billing Provider: RYDER GONGORA MD,MICHAELA COOK, RES Apr 10, 2025 18:09
[2025-04-11] VITALS (7 sets, daily range): BP systolic 112–158; BP diastolic 62–92; PULSE 58–72; RESP 16; TEMP 97.5–98.1; O2SAT 95–97
[2025-04-11 07:44] LABS: MEAN PLATELET VOLUME 8.5 FL (7.4-10.4); RED CELL DISTRIBUTION WIDTH 13.7 % (11.5-14.5)
[2025-04-11 07:57] LABS: CREATININE 1.35 MG/DL (0.60-1.10); TOTAL CARBON DIOXIDE 26.3 MMOL/L (24-32); eCRCL 59 ML/MIN; eGFR 54 ML/MIN
[2025-04-11] MEDS: midodrine 5mg tablet PO SCH (12:06)
--- NOTE | 2025-04-11 13:08 | PROGRESS NOTE- Residence ---
Progress Note - Resident Providers to CC Resident Creating Document: MICHAELA GARCIA, RES ~ Antibiotic Timeout Antibiotic Ordered?: No Subjective The patient was seen and examined at bedside today. He continues to be orthostatic and has been feeling dizzy. PT recommends rehab. Referrals sent to out of the area rehab facilities. Objective Vital Signs Date Time Temp Pulse Resp B/P (MAP) Pulse Ox O2 Delivery O2 Flow Rate FiO2 04/11/25 08:33 16 04/11/25 07:17 Room Air 04/11/25 06:00 97.9 62 143/77 (99) 97 04/10/25 20:00 0.0 Result Diagram: 04/11/25 0645 04/11/25 0654 Elderly male, alert and oriented x4, not in acute distress Head: Normocephalic with an atraumatic Eyes: Pupils- 3mm, reacting to light, conjunctiva- anicteric Nose and throat: No polyps, septum- normal, no mucosal ulcers, moist mucous membranes Neck: Supple, no lymphadenopathy, no carotid bruit Respiratory: No use of accessory muscles of respiration, Bilateral normal vesicular breath sounds heard. 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 Skin: warm and dry, no rash, no purpura Neuro: MENTAL STATUS: AAOx3 LANG/SPEECH: Fluent, intact naming, repetition & comprehension CRANIAL NERVES: II: Pupils equal and reactive, visual field blurry with decreased peripheral vision, improved from yesterday III, IV, : EOM intact, no gaze preference or deviation V: normal on right side, numbness on left side VII: Left-sided facial droop VIII: normal hearing to speech MOTOR: 5/5 in both right upper and lower extremities, 4/5 in left hand, forearm, 4/5 in left shoulder and arm, 4/5 in left lower extremity REFLEXES: 2/4 in right upper and lower extremities, 2/4 reflexes on left side SENSORY: Normal to touch, temperature & pin prick in right upper and lower extremities and right side of the trunk, diminished sensation on the left Plantars negative and pronator drift absent Gait not tested Coagulation Studies Laboratory Tests Test 04/05/25 14:35 Prothrombin Time 11.1 SECONDS (9.0-12.0) INR International Normalized Ratio 1.1 INR Activated Partial Thromboplast Time 25 SECONDS (22-32) Coagulation Comments Assessment Assessment The patient is a 60-year-old male with past medical history of hypertension, CKD stage 3, DVT, sick sinus syndrome s/p ppm, presented to the ED with symptoms of stroke. He is being admitted into the hospital for further evaluation and management. Plan Plan Left hemiparesis TIA, ABCD2 score 6 MRI negative stroke cannot be ruled out Cervical degenerative disease with myelopathy Possible vertebro basilar insufficiency Repeat MRI head showed no changes. MRI C-spine showed diffuse degenerative disc disease. At C3-C4 and C4-C5, there is effacement of anterior cord surface by bulging disc and osteophytes. At C5- C6 and C6-C7 there is effacement of the thecal sac by bulging disc and osteophytes. Neurology recommended to continue the same treatment and follow up with neurosurgery. Dr. Suh, neurosurgeon was consulted who recommended outpatient follow up for cervical surgery. He suspects myelopathy but unsure why the clinical presentation is not correlating to his symptoms. CT head on 04/05/2025 negative for acute intracranial abnormalities. CTA head and neck showed no large vessel occlusion. MRI head on 04/07/2025 showed no acute or recent infarct. Echo showed no right to left flow. LDL 70, HbA1c 5.2. Continue home Eliquis and start atorvastatin 40 mg daily. Continue physical therapy. Speech therapy done - cleared for regular textured diet. Aspiration and fall precautions. Neuro checks q.4h. History of DVT 12/2024 Continue Eliquis 5 mg b.i.d. Continue follow up with the forging machine hand. Hypertension Blood pressures are currently soft. Hold all blood pressure medications. Orthostatic hypotension Started the patient on midrodrine 10 mg TID. Continue prednisone. Continue NS at 70 ml/hr. Continue compression stockings and abdominal binder. Lavonne TID meclizine for dizziness and vertigo. Unspecified thyroid condition TSH with in normal range. Continue outpatient follow up. CKD stage 3 GFR 54, creatinine 1.35. Continue to monitor kidney function. Sick sinus syndrome s/p permanent pacemaker placement Continue follow up with the arts and crafts instructor. Heart rate currently in 60s, sinus. Code Status: Full code DVT Prophylaxis: Eliquis Analgesia/Sedation: Acetaminophen Lines/Tubes: PIV Nutrition: Regular diet PT: Post acute care Prognosis: Guarded Disposition: Continue PT. Continue monitoring orthostatic vitals. Pending placement. Michaela Garcia MD Internal Medicine Resident PGY-2 The patient was seen, examined and discussed with the attending physician, Dr. Gongora. Date of Service: Apr 11, 2025 Billing Provider: RYDER GONGORA MD,MICHAELA COOK, RES Apr 11, 2025 13:08
[2025-04-12 05:11] LABS: MEAN PLATELET VOLUME 8.4 FL (7.4-10.4); RED CELL DISTRIBUTION WIDTH 14.1 % (11.5-14.5)
[2025-04-12 05:30] LABS: CREATININE 1.38 MG/DL (0.60-1.10); TOTAL CARBON DIOXIDE 26.6 MMOL/L (24-32); eCRCL 58 ML/MIN; eGFR 52 ML/MIN
[2025-04-12 06:00] VITALS: BP 168/92; PULSE 57; RESP 14; TEMP 97.4; O2SAT 98
[2025-04-12 10:00] VITALS: BP 135/68; PULSE 65; RESP 14; TEMP 98.2; O2SAT 98
--- NOTE | 2025-04-12 16:59 | PROGRESS NOTE- Residence ---
Progress Note - Resident Providers to CC Resident Creating Document: MICHAELA GARCIA, RES ~ Antibiotic Timeout Antibiotic Ordered?: No Subjective The patient was seen and examined at bedside today. Complains of blurry vision and headache when moving his head side to side. Pending placement. Objective Vital Signs Date Time Temp Pulse Resp B/P (MAP) Pulse Ox O2 Delivery O2 Flow Rate FiO2 04/12/25 16:34 14 04/12/25 12:21 143 04/12/25 10:00 98.2 135/68 (90) 98 Room Air 04/11/25 20:00 0.0 Result Diagram: 04/12/2544204/12/25 044 Elderly male, alert and oriented x4, not in acute distress Head: Normocephalic with an atraumatic Eyes: Pupils- 3mm, reacting to light, conjunctiva- anicteric Nose and throat: No polyps, septum- normal, no mucosal ulcers, moist mucous membranes Neck: Supple, no lymphadenopathy, no carotid bruit Respiratory: No use of accessory muscles of respiration, Bilateral normal vesicular breath sounds heard. 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 Skin: warm and dry, no rash, no purpura Neuro: MENTAL STATUS: AAOx3 LANG/SPEECH: Fluent, intact naming, repetition & comprehension CRANIAL NERVES: II: Pupils equal and reactive, visual field blurry with decreased peripheral vision, improved from yesterday III, IV, : EOM intact, no gaze preference or deviation V: normal on right side, numbness on left side VII: Left-sided facial droop VIII: normal hearing to speech MOTOR: 5/5 in both right upper and lower extremities, 4/5 in left hand, forearm, 4/5 in left shoulder and arm, 4/5 in left lower extremity REFLEXES: 2/4 in right upper and lower extremities, 2/4 reflexes on left side SENSORY: Normal to touch, temperature & pin prick in right upper and lower extremities and right side of the trunk, diminished sensation on the left Plantars negative and pronator drift absent Gait not tested Coagulation Studies Laboratory Tests Test 04/05/25 14:35 Prothrombin Time 11.1 SECONDS (9.0-12.0) INR International Normalized Ratio 1.1 INR Activated Partial Thromboplast Time 25 SECONDS (22-32) Coagulation Comments Assessment Assessment The patient is a 60-year-old male with past medical history of hypertension, CKD stage 3, DVT, sick sinus syndrome s/p ppm, presented to the ED with symptoms of stroke. He is being admitted into the hospital for further evaluation and management. Plan Plan Left hemiparesis TIA, ABCD2 score 6 MRI negative stroke cannot be ruled out Cervical degenerative disease with myelopathy Possible vertebro basilar insufficiency Repeat MRI head showed no changes. MRI C-spine showed diffuse degenerative disc disease. At C3-C4 and C4-C5, there is effacement of anterior cord surface by bulging disc and osteophytes. At C5- C6 and C6-C7 there is effacement of the thecal sac by bulging disc and osteophytes. Neurology recommended to continue the same treatment and follow up with neurosurgery. Dr. Suh, neurosurgeon was consulted who recommended outpatient follow up for cervical surgery. He suspects myelopathy but unsure why the clinical presentation is not correlating to his symptoms. CT head on 04/05/2025 negative for acute intracranial abnormalities. CTA head and neck showed no large vessel occlusion. MRI head on 04/07/2025 showed no acute or recent infarct. Echo showed no right to left flow. LDL 70, HbA1c 5.2. Continue home Eliquis and start atorvastatin 40 mg daily. Continue physical therapy. Speech therapy done - cleared for regular textured diet. Aspiration and fall precautions. Neuro checks q.4h. Orthostatic hypotension Started the patient on midrodrine 10 mg TID. Continue prednisone. Continue NS at 70 ml/hr. Continue compression stockings and abdominal binder. Lavonne TID meclizine for dizziness and vertigo. History of DVT 12/2024 Continue Eliquis 5 mg b.i.d. Continue follow up with the credit associate. Hypertension Continue home losartan 50 mg daily. Unspecified thyroid condition TSH with in normal range. Continue outpatient follow up. CKD stage 3 GFR 52, creatinine 1.38. Continue to monitor kidney function. Sick sinus syndrome s/p permanent pacemaker placement Continue follow up with the rv repairer. Heart rate currently in 60s, sinus. Code Status: Full code DVT Prophylaxis: Eliquis Analgesia/Sedation: Acetaminophen Lines/Tubes: PIV Nutrition: Regular diet PT: Post acute care Prognosis: Guarded Disposition: Continue PT. Continue monitoring orthostatic vitals. Pending placement. Michaela Garcia MD Internal Medicine Resident PGY-2 The patient was seen, examined and discussed with the attending physician, Dr. Gongora. Date of Service: Apr 12, 2025 Billing Provider: RYDER GONGORA MD,MICHAELA COOK, RES Apr 12, 2025 16:58
[2025-04-12 18:00] VITALS: BP_SYST 119; BP_SYST 127; BP_DIAS 59; BP_DIAS 71; PULSE 73; PULSE 74; RESP 16; TEMP 97.9; TEMP 98; O2SAT 100; O2SAT 96
[2025-04-12] MEDS: PERFLUTREN PROTEIN-A MICROSPHR (Optison) 0.22 MG/ML 3ML VIAL IV ONE (20:12)
[2025-04-12 22:00] VITALS: BP_SYST 129; BP_SYST 134; BP_DIAS 69; BP_DIAS 75; PULSE 61; PULSE 69; RESP 15; TEMP 97.9; TEMP 98; O2SAT 97; O2SAT 98
[2025-04-13 06:00] VITALS: BP 161/86; PULSE 63; RESP 19; TEMP 97.6; O2SAT 97
[2025-04-13 06:59] LABS: CREATININE 1.32 MG/DL (0.60-1.10); TOTAL CARBON DIOXIDE 27.2 MMOL/L (24-32); eCRCL 61 ML/MIN; eGFR 55 ML/MIN
[2025-04-13 07:05] LABS: MEAN PLATELET VOLUME 8.4 FL (7.4-10.4); RED CELL DISTRIBUTION WIDTH 14.2 % (11.5-14.5)
[2025-04-13 10:00] VITALS: BP 134/76; PULSE 56; RESP 13; TEMP 97.7; O2SAT 98
--- NOTE | 2025-04-13 16:20 | PROGRESS NOTE- Residence ---
Progress Note - Resident Providers to CC Resident Creating Document: MICHAELA GARCIA, RES ~ Antibiotic Timeout Antibiotic Ordered?: No Subjective The patient was seen and examined at bedside today. Continues to have trouble with dizziness and orthostatic hypotension. Pending placement. Provided the patient with Dr. Suh's contact information so that he can set up an appointment with him after discharge. Objective Vital Signs Date Time Temp Pulse Resp B/P (MAP) Pulse Ox O2 Delivery O2 Flow Rate FiO2 04/13/25 09:23 62 04/13/25 09:23 16 04/13/25 06:00 97.6 161/86 (111) 97 Room Air 04/12/25 19:55 0 21 Result Diagram: 04/13/25 0602 04/13/25 0602 Elderly male, alert and oriented x4, not in acute distress Head: Normocephalic with an atraumatic Eyes: Pupils- 3mm, reacting to light, conjunctiva- anicteric Nose and throat: No polyps, septum- normal, no mucosal ulcers, moist mucous membranes Neck: Supple, no lymphadenopathy, no carotid bruit Respiratory: No use of accessory muscles of respiration, Bilateral normal vesicular breath sounds heard. 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 Skin: warm and dry, no rash, no purpura Neuro: MENTAL STATUS: AAOx3 LANG/SPEECH: Fluent, intact naming, repetition & comprehension CRANIAL NERVES: II: Pupils equal and reactive, visual field blurry with decreased peripheral vision, improved from yesterday III, IV, : EOM intact, no gaze preference or deviation V: normal on right side, numbness on left side VII: normal VIII: normal hearing to speech MOTOR: 5/5 in both right and left upper and lower extremities REFLEXES: 2/4 in right and left upper and lower extremities SENSORY: Normal to touch, temperature & pin prick Plantars negative and pronator drift absent Gait not tested Coagulation Studies Laboratory Tests Test 04/05/25 14:35 Prothrombin Time 11.1 SECONDS (9.0-12.0) INR International Normalized Ratio 1.1 INR Activated Partial Thromboplast Time 25 SECONDS (22-32) Coagulation Comments Assessment Assessment The patient is a 60-year-old male with past medical history of hypertension, CKD stage 3, DVT, sick sinus syndrome s/p ppm, presented to the ED with symptoms of stroke. He is being admitted into the hospital for further evaluation and management. Plan Plan Left hemiparesis Cervical degenerative disease with myelopathy Vertebro basilar insufficiency Possible TIA MRI negative stroke cannot be ruled out MRI C-spine showed diffuse degenerative disc disease. At C3-C4 and C4-C5, there is effacement of anterior cord surface by bulging disc and osteophytes. At C5- C6 and C6-C7 there is effacement of the thecal sac by bulging disc and osteophytes. Dr. Suh, neurosurgeon was consulted who recommended outpatient follow up for cervical surgery. He suspects myelopathy but unsure why the clinical presentation is not correlating to his symptoms. MRI head x2 negative for acute infarcts. CT head negative for acute intracranial abnormalities. CTA head and neck showed no large vessel occlusion. Echo showed no right to left flow. LDL 70, HbA1c 5.2. Continue home Eliquis and start atorvastatin 40 mg daily. Continue physical therapy. Speech therapy done - cleared for regular textured diet. Aspiration and fall precautions. Neuro checks q.4h. Orthostatic hypotension Discontinued tamsulosin and decreased the dose of losartan to 25 mg daily. Continue midrodrine 10 mg TID. If the patient's baseline blood pressures continue to be high, we will discontinue midodrine tomorrow. Continue prednisone, last date on 04/15/25. Start fludrocortisone from 04/16/25. Continue NS at 70 ml/hr. Continue compression stockings and abdominal binder. Lavonne TID meclizine for dizziness and vertigo. History of DVT 12/2024 Continue Eliquis 5 mg b.i.d. Continue follow up with the machine captain. Hypertension Decreased the dose of losartan to 25 mg daily. We will discontinue midodrine if blood pressures continue to be high tomorrow. Unspecified thyroid condition TSH with in normal range. Continue outpatient follow up. CKD stage 3 Continue to monitor kidney function. Sick sinus syndrome s/p permanent pacemaker placement Continue follow up with the floor space allocator. Heart rate currently in 60s, sinus. Code Status: Full code DVT Prophylaxis: Eliquis Analgesia/Sedation: Acetaminophen Lines/Tubes: PIV Nutrition: Regular diet PT: Post acute care Prognosis: Guarded Disposition: Continue PT. Continue monitoring orthostatic vitals. Pending placement. Michaela Garcia MD Internal Medicine Resident PGY-2 The patient was seen, examined and discussed with the attending physician, Dr. Gongora. Date of Service: Apr 13, 2025 Billing Provider: RYDER GONGORA MD,MICHAELA COOK, RES Apr 13, 2025 16:20
[2025-04-13 18:00] VITALS: BP 145/81; PULSE 63; RESP 15; TEMP 98.2; O2SAT 96
[2025-04-13 22:00] VITALS: BP 122/61; PULSE 61; RESP 14; TEMP 98.4; O2SAT 95
[2025-04-14 06:00] VITALS: BP 152/74; PULSE 71; RESP 17; TEMP 97; O2SAT 97
[2025-04-14 06:05] LABS: MEAN PLATELET VOLUME 8.9 FL (7.4-10.4); RED CELL DISTRIBUTION WIDTH 14.1 % (11.5-14.5)
[2025-04-14 06:32] LABS: CREATININE 1.32 MG/DL (0.60-1.10); TOTAL CARBON DIOXIDE 28.4 MMOL/L (24-32); eCRCL 61 ML/MIN; eGFR 55 ML/MIN
[2025-04-14] MEDS: midodrine 5mg tablet PO SCH (08:30)
--- NOTE | 2025-04-14 09:56 | PROGRESS NOTE- Residence ---
Progress Note - Resident Providers to CC Resident Creating Document: SHIVANI SCHOFIELD RES ~ Antibiotic Timeout Antibiotic Ordered?: No Subjective Patient was seen and examined bedside. He still complains of dizziness on standing up. He has left lower extremity weakness. He has no new overnight complaints. The patient refuses to go to a rehab facility out of the area. I have spoken to the hospice case manager and all the rehab facilities in the area have denied him. Objective Vital Signs Date Time Temp Pulse Resp B/P (MAP) Pulse Ox O2 Delivery O2 Flow Rate FiO2 04/14/25 08:33 Room Air 0.0 21 04/14/25 08:27 71 04/14/25 06:00 97.0 17 152/74 (100) 97 Result Diagram: 04/14/25 0521 04/14/25 0521 Awake , alert, and oriented x4, resting comfortably in the bed, in no acute distress HEENT: Atraumatic, normocephalic, EOMI, anicteric sclera ; pink conjunctiva, moist mucous membranes Neck: Trachea midline. Supple, full range of motion, no JVD Cardiac: Pacemaker present on left upper chest, Regular rhythm, regular rate with no murmurs all over the precordium. Respiratory: Equal breath sounds bilaterally, no tachypnea, no wheezing ,rub or rales, Chest wall is symmetric and without deformity. 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 Blurred vision with decreased peripheral vision which has improved from yesterday. No sensory deficit, 4/5 power in left lower extremity, 2/4 reflexes in right and left upper and lower extremities, Cranial nerves II-XII intact, Pronator drift absent Skin: Warm and dry Coagulation Studies Laboratory Tests Test 04/05/25 14:35 Prothrombin Time 11.1 SECONDS (9.0-12.0) INR International Normalized Ratio 1.1 INR Activated Partial Thromboplast Time 25 SECONDS (22-32) Coagulation Comments Assessment Assessment The patient is a 60-year-old male with past medical history of hypertension, CKD stage 3, DVT, sick sinus syndrome s/p ppm, presented to the ED with symptoms of stroke. He is being admitted into the hospital for further evaluation and management. Plan Plan Left hemiparesis Cervical degenerative disease with myelopathy Vertebro basilar insufficiency Possible TIA MRI negative stroke cannot be ruled out MRI C-spine showed diffuse degenerative disc disease. At C3-C4 and C4-C5, there is effacement of anterior cord surface by bulging disc and osteophytes. At C5- C6 and C6-C7 there is effacement of the thecal sac by bulging disc and osteophytes. Dr. Suh, neurosurgeon was consulted who recommended outpatient follow up for cervical surgery. He suspects myelopathy but unsure why the clinical presentation is not correlating to his symptoms. MRI head x2 negative for acute infarcts. CT head negative for acute intracranial abnormalities. CTA head and neck showed no large vessel occlusion. Echo showed no right to left flow. LDL 70, HbA1c 5.2. Continue home Eliquis and atorvastatin 40 mg daily. Continue physical therapy. Speech therapy done - cleared for regular textured diet. Aspiration and fall precautions. Neuro checks q.4h. He does not want to go to rehab out of the area, all rehab facilities within the area have denied him. Continue PT, we will plan for home with home health once he is cleared by PT with outpatient follow up with Dr. Suh Patient has history of homelessness temporarily, clinical social work aide was consulted Orthostatic hypotension Decreased dosage of midodrine 10 mg to 5 mg. If the patient's baseline blood pressures continues to be high, we will discontinue midodrine tomorrow. Continue losartan 25 mg Continue prednisone, last date on 04/15/25. Start fludrocortisone from 04/16/25. Continue NS at 70 ml/hr. Continue compression stockings and abdominal binder. Lavonne TID meclizine for dizziness and vertigo. History of DVT 12/2024 Continue Eliquis 5 mg b.i.d. Continue follow up with the equipment records supervisor. Hypertension Continue losartan 25 mg daily. Decreased dosage of midodrine 10 mg to 5 mg. If the patient's baseline blood pressures continues to be high, we will discontinue midodrine tomorrow Unspecified thyroid condition TSH with in normal range. Continue outpatient follow up. CKD stage 3 Continue to monitor kidney function. Sick sinus syndrome s/p permanent pacemaker placement Continue follow up with the forestry worker. Heart rate currently in 70s, sinus. Code Status: Full code DVT Prophylaxis: Eliquis Analgesia/Sedation: Acetaminophen Lines/Tubes: PIV Nutrition: Regular diet PT: Post acute care Prognosis: Guarded Disposition: Continue PT. Continue monitoring orthostatic vitals. Social sevices consult placed. He does not want to go to rehab out of the area and all rehab facilities within the area have denied him. Will discharge home with home health once PT clears. Resident MD attestation: The patient note has been reviewed and supervised by senior residents PGY-2/ PGY-3. Patient was seen, examined and discussed with attending physician, Dr. Brian Schofield MD Internal Medicine resident, PGY-1 Date of Service: Apr 14, 2025 Billing Provider: NIDA MURILLO DO Common Visit Codes: [id number] INP/OBS CARE(HIGH) SHIVANI SCHOFIELD, RES Apr 14, 2025 09:56 NIDA MURILLO DO Apr 14, 2025 15:47
[2025-04-14 18:00] VITALS: BP 149/78; PULSE 67; RESP 18; TEMP 97.5; O2SAT 96
[2025-04-14 20:00] VITALS: RESP 18; O2SAT 96
[2025-04-14 22:00] VITALS: BP 145/83; PULSE 70; RESP 18; TEMP 98; O2SAT 95
[2025-04-15 05:45] LABS: MEAN PLATELET VOLUME 8.3 FL (7.4-10.4); RED CELL DISTRIBUTION WIDTH 14.3 % (11.5-14.5)
[2025-04-15 05:57] LABS: CREATININE 1.35 MG/DL (0.60-1.10); TOTAL CARBON DIOXIDE 28.4 MMOL/L (24-32); eCRCL 59 ML/MIN; eGFR 54 ML/MIN
[2025-04-15 06:00] VITALS: BP 161/89; PULSE 60; RESP 17; TEMP 97.8; O2SAT 99
[2025-04-15 12:00] VITALS: BP 129/74; PULSE 61; RESP 16; TEMP 98.3; O2SAT 95
--- NOTE | 2025-04-15 14:07 | PROGRESS NOTE- Residence ---
Progress Note - Resident Providers to CC Resident Creating Document: MICHAELA GARCIA, RES ~ Antibiotic Timeout Antibiotic Ordered?: No Subjective Patient was seen and examined bedside. He reported that his dizziness has gotten better. No other complaints. Objective Vital Signs Date Time Temp Pulse Resp B/P (MAP) Pulse Ox O2 Delivery O2 Flow Rate FiO2 04/15/25 12:00 98.3 61 16 129/74 (92) 95 Room Air 04/14/25 08:33 0.0 21 Result Diagram: 04/15/25 04504/15/25 0451 Elderly male, alert and oriented x4, not in acute distress Head: Normocephalic with an atraumatic Eyes: Pupils- 3mm, reacting to light, conjunctiva- anicteric Nose and throat: No polyps, septum- normal, no mucosal ulcers, moist mucous membranes Neck: Supple, no lymphadenopathy, no carotid bruit Respiratory: No use of accessory muscles of respiration, Bilateral normal vesicular breath sounds heard. 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 Skin: warm and dry, no rash, no purpura Neuro: MENTAL STATUS: AAOx3 LANG/SPEECH: Fluent, intact naming, repetition & comprehension CRANIAL NERVES: II: Pupils equal and reactive, normal visual field III, IV, : EOM intact, no gaze preference or deviation V: normal on right side, numbness on left side VII: normal VIII: normal hearing to speech MOTOR: 5/5 in both right and left upper and lower extremities REFLEXES: 2/4 in right and left upper and lower extremities SENSORY: Normal to touch, temperature & pin prick Plantars negative and pronator drift absent Gait not tested Coagulation Studies Laboratory Tests Test 04/05/25 14:35 Prothrombin Time 11.1 SECONDS (9.0-12.0) INR International Normalized Ratio 1.1 INR Activated Partial Thromboplast Time 25 SECONDS (22-32) Coagulation Comments Assessment Assessment The patient is a 60-year-old male with past medical history of hypertension, CKD stage 3, DVT, sick sinus syndrome s/p ppm, presented to the ED with symptoms of stroke. He is being admitted into the hospital for further evaluation and management. Plan Plan Left hemiparesis Cervical degenerative disease with myelopathy Vertebro basilar insufficiency Possible TIA MRI negative stroke cannot be ruled out MRI C-spine showed diffuse degenerative disc disease. At C3-C4 and C4-C5, there is effacement of anterior cord surface by bulging disc and osteophytes. At C5- C6 and C6-C7 there is effacement of the thecal sac by bulging disc and osteophytes. Dr. Suh, neurosurgeon was consulted who recommended outpatient follow up for cervical surgery. He suspects myelopathy but unsure why the clinical presentation is not correlating to his symptoms. MRI head x2 negative for acute infarcts. CT head negative for acute intracranial abnormalities. CTA head and neck showed no large vessel occlusion. Echo showed no right to left flow. LDL 70, HbA1c 5.2. Continue home Eliquis and atorvastatin 40 mg daily. Continue physical therapy. Speech therapy done - cleared for regular textured diet. Aspiration and fall precautions. Neuro checks q.4h. He does not want to go to rehab out of the area, all rehab facilities within the area have denied him. Continue PT, we will plan for home with home health once he is cleared by PT with outpatient follow up with Dr. Suh Patient has history of homelessness temporarily, social insurance adviser was consulted Orthostatic hypotension Discontinued midodrine for hypertension. Continue losartan 25 mg once daily. Continue prednisone, last date on 04/15/25. Start fludrocortisone from 04/16/25. Continue NS at 70 ml/hr. Continue compression stockings and abdominal binder. Lavonne TID meclizine for dizziness and vertigo. History of DVT 12/2024 Continue Eliquis 5 mg b.i.d. Continue follow up with the inter com servicer. Hypertension Continue losartan 25 mg daily. Midodrine discontinued. Unspecified thyroid condition TSH with in normal range. Continue outpatient follow up. CKD stage 3 Continue to monitor kidney function. Sick sinus syndrome s/p permanent pacemaker placement Continue follow up with the lens silverer. Heart rate currently in 70s, sinus. Code Status: Full code DVT Prophylaxis: Eliquis Analgesia/Sedation: Acetaminophen Lines/Tubes: PIV Nutrition: Regular diet PT: Post acute care Prognosis: Guarded Disposition: Continue PT. Continue monitoring orthostatic vitals. He does not want to go to out of area rehabs and all local rehabs have denied him. Will discharge home with home health once PT clears. Michaela Garcia MD Internal Medicine Resident, PGY-2 The patient was seen, examined and discussed with the attending physician, Dr. Torres. Date of Service: Apr 15, 2025 Billing Provider: NIDA TORRES DO Common Visit Codes: [id number] INP/OBS CARE(HIGH) MICHAELA GARCIA, RES Apr 15, 2025 14:07 NIDA TORRES DO Apr 15, 2025 15:13
[2025-04-15 18:00] VITALS: BP 116/65; PULSE 68; RESP 18; TEMP 99.3; O2SAT 97
[2025-04-15 22:00] VITALS: BP 144/82; PULSE 64; RESP 16; TEMP 96.9; O2SAT 94
[2025-04-16 05:41] LABS: MEAN PLATELET VOLUME 8.3 FL (7.4-10.4); RED CELL DISTRIBUTION WIDTH 14.7 % (11.5-14.5)
[2025-04-16 06:00] VITALS: BP 143/87; PULSE 60; RESP 16; TEMP 98; O2SAT 98
[2025-04-16 06:10] LABS: CREATININE 1.46 MG/DL (0.60-1.10); TOTAL CARBON DIOXIDE 27.5 MMOL/L (24-32); eCRCL 55 ML/MIN; eGFR 49 ML/MIN
[2025-04-16 10:00] VITALS: BP_SYST 104; BP_SYST 122; BP_SYST 142; BP_DIAS 67; BP_DIAS 77; BP_DIAS 83; PULSE 61; PULSE 62; PULSE 63; RESP 17; TEMP 98.3; O2SAT 95
[2025-04-16] MEDS ORDERED: FLUD0.1T2 PO (15:08)
--- NOTE | 2025-04-16 17:51 | DISCHARGE SUMMARY-Residence ---
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 Possible MRI negative stroke Orthostatic hypotension Hx of Chronic DVT Hypertension Unspecified thyroid condition CKD stage 3 Sick sinus syndrome s/p permanent pacemaker placement Operations\Procedures: None Consultants: Chung Holder (Neurology) Complications: None Condition on DC: Stable New Medications: Fludrocortisone Acetate* (Florinef*) 0.1 Mg Tablet 0.1 MG PO DAILY@0830 for 30 Days, #30 TAB Continued Medications: Acetaminophen (Acetaminophen) 500 Mg Tablet 500 Q6H Apixaban (Eliquis) 5 Mg Tablet 1 TAB PO BID Atorvastatin Calcium (Atorvastatin Calcium) 40 Mg Tablet 40 TAB PO DAILY Gabapentin (Gabapentin ER) 300 Mg Tab.er.24h 300 MG PO TID for 30 Days, #90 Losartan Potassium (Losartan Potassium) 50 Mg Tablet 50 TAB PO DAILY Pantoprazole Sodium (Pantoprazole Sodium) 40 Mg Tablet.dr 40 TAB PO DAILY Sertraline HCl (Sertraline HCl) 50 Mg Tablet 50 TAB PO DAILY Discontinued Medications: Tamsulosin Hcl* (Flomax*) 0.4 Mg Cap.sr.24h 0.4 MG PO DAILY for 30 Days, #30 Discharge Summary: Patient was admitted with the following HPI: The patient is a 60-year-old male with past medical history of hypertension, CKD stage 3, cervical stenosis, sick sinus syndrome SP ppm placement, DVT, was brought to the ED by EMS from [facility]. The patient only remembers bits and pieces of what happened today. He remembers walking out of [facility], felt dizzy and tripped over something, manage to get to his truck, drove for about 20 ft but felt dizzy which is why he parked and called for help. He also reported h aving pounding headache and blurry vision, both of which are getting better now. He was unable to feel or move his left arm and leg. Hospital course: Patient was initially admitted with suspicion of acute ischemic stroke. However, all imaging was negative for acute brain abnormalities. An MRI of the brain did show significant degenerative disc disease, for which Dr. Suh was consulted. He recommended follow up as an outpatient for further management. In the meantime, patient was also found with significant orthostatic hypotension and difficulty tolerating physical therapy because of this. Patient was started on fludrocortisone, and some of his home medications including Tamsulosin were held. Patient has improved significantly since admission, with recovery of Neurological function close to baseline. However, due to persistence of some left-sided weakness, physical therapy initially recommended rehab, which patient rejected. Upon further evaluation today, it was determined that patient was safe to go home with home health and physical therapy. Patient was also recommended to use compression stockings and abdominal binder. Patient was otherwise hemodynamically stable and agreeable for discharge today. Imaging: Head CT: No acute intracranial abnormality Head/neck CTA: Widely patent arteries in the head and neck without large vessel occlusion, significant stenosis, aneurysm, dissection, or AVM. Cervical spine MRI: Diffuse degenerative disc disease is present. At C3-C4 and C4-C5 there is effacement of the anterior cord surface by bulging disc and osteophytes. At C5- C6 and C6-C7 there is effacement of the thecal sac by bulging disc and osteophytes. No cord edema or myelomalacia is present on this study. Head MRI on 04/07/2025: No acute or recent infarct. Had an MRI on 04/09/2025: There is no acute intracranial pathology in the brain. Echocardiogram: Normal LV size and wall thickness. Overall systolic function is normal. LVEF is 60%. RV appears mildly dilated with normal contractility. Pacemaker wire in right heart. The left atrium size is normal. Saline study was performed with 2 IV injections of 10 ccs of agitated normal saline at rest, with cough, and with valsalva. Negative saline study for right to left flow. Trileaflet AV appears sclerotic without stenosis. Mild insufficiency. MV is thickened with mild annular thickening and no stenosis. Trace mitral regurgitation. The tricuspid valve is normal in structure. Trace tricuspid regurgitation. The pulmonary valve is normal in structure. Trace pulmonic insufficiency. There is no pericardial effusion. Laboratory Tests Test 04/15/25 04:51 04/16/25 04:12 White Blood Count 14.8 X10'3 13.3 X10'3 Red Blood Count 4.87 X10'6 5.00 X10'6 Hemoglobin 14.2 g/dl 14.8 g/dl Hematocrit 43.1 % 44.1 % Mean Corpuscular Volume 88.4 FL 88.2 FL Mean Corpuscular Hemoglobin 29.2 PG 29.6 PG Mean Corpuscular Hemoglobin Concent 33.0 g/dL 33.6 g/dL Red Cell Distribution Width 14.3 % 14.7 % Platelet Count 361 X10'3 327 X10'3 Mean Platelet Volume 8.3 FL 8.3 FL Neutrophils (%) (Auto) 67.7 % 63.2 % Lymphocytes (%) (Auto) 22.8 % 27.3 % Monocytes (%) (Auto) 7.0 % 6.8 % Eosinophils (%) (Auto) 1.8 % 2.1 % Basophils (%) (Auto) 0.7 % 0.6 % Neutrophils # (Auto) 10.0 X10'3 8.4 X10'3 Lymphocytes # (Auto) 3.4 X10'3 3.6 X10'3 Monocytes # (Auto) 1.0 X10'3 0.9 X10'3 Eosinophils # (Auto) 0.3 X10'3 0.3 X10'3 Basophils # (Auto) 0.1 X10'3 0.1 X10'3 CBC Comment Sodium Level 139 MMOL/L 140 MMOL/L Potassium Level 4.0 MMOL/L 4.0 MMOL/L Chloride Level 106 MMOL/L 105 MMOL/L Carbon Dioxide Level 28.4 MMOL/L 27.5 MMOL/L Anion Gap 5 8 Blood Urea Nitrogen 24 MG/DL 32 MG/DL Creatinine 1.35 MG/DL 1.46 MG/DL Estimated GFR/1.73 m2 54 ML/MIN 49 ML/MIN BUN/Creatinine Ratio 17.8 21.9 Glucose Level 91 MG/DL 84 MG/DL Calcium Level 9.9 MG/DL 9.7 MG/DL Total Bilirubin 0.2 MG/DL 0.3 MG/DL Aspartate Amino Transf (AST/SGOT) 24 U/L 24 U/L Alanine Aminotransferase (ALT/SGPT) 59 U/L 62 U/L Alkaline Phosphatase 73 IU/L 77 IU/L Total Protein 6.3 G/DL 6.5 G/DL Albumin 3.2 G/DL 3.3 G/DL Globulin 3.1 G/DL 3.2 G/DL Albumin/Globulin Ratio 1.0 1.0 Chemistry Comments Discharge physical exam: Vital Signs Date Time Temp Pulse Resp B/P (MAP) Pulse Ox O2 Delivery O2 Flow Rate FiO2 04/16/25 10:00 61 122/77 (92) 04/16/25 10:00 98.3 17 95 Room Air 04/14/25 08:33 0.0 21 General: lert and oriented x4, not in acute distress Head: Normocephalic with an atraumatic Eyes: Pupils- 3mm, reacting to light, conjunctiva- anicteric Nose and throat: No polyps, septum- normal, no mucosal ulcers, moist mucous membranes Neck: Supple, no lymphadenopathy, no carotid bruit Respiratory: No use of accessory muscles of respiration, Bilateral normal vesicular breath sounds heard. 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 Skin: warm and dry, no rash, no purpura Neuro: MENTAL STATUS: AAOx3 LANG/SPEECH: Fluent, intact naming, repetition & comprehension CRANIAL NERVES: Intact MOTOR: 5/5 in both right and left upper and lower extremities, with slight drift on the left upper and lower extremities REFLEXES: 2/4 in right and left upper and lower extremities SENSORY: Normal to touch, temperature & pin prick Plantars negative and pronator drift absent Normal gait Disposition: Patient will be discharged with the following recommendations: - Please follow up with Dr Suh to discuss management of your cervical spine - Please continue to use abdominal binder and compression stockins - We discontinued your Tamsulosin for now, please follow up with your PCP within one week and discuss alternatives. Also discuss with your PCP about tapering your Fludrocortisone - Continue all other medications as prescribed - We will order home health for you - Return to the ED if any concerning symptoms *Problems/Diagnosis: (1) Degenerative disc disease, cervical Status: Chronic (2) Cerebrovascular accident Status: Acute Total Time Spent on D/C: > 30 Minutes Date of Service: Apr 16, 2025 Billing Provider: RYDER TARANGO MD, LEONARDO LUIS Apr 16, 2025 17:29
== END 2025-04-16 16:15 | disposition home health service (06) | DRG 347 ==
LOC: ER 14:30 → ED HOLD 16:15 → ORTHO 4S 17:50 → UNDODISIN 04-07 12:10
PROVIDERS: ADMIT Family Medicine; ATTEND Family Medicine
PROC: B3251ZZ Computerized Tomography (CT Scan) of Bilateral Common Carotid Arteries using Low Osmolar Contrast (ICD-10-PCS; principal; 2025-04-05)
PROC: B32G1ZZ Computerized Tomography (CT Scan) of Bilateral Vertebral Arteries using Low Osmolar Contrast (ICD-10-PCS; 2025-04-05)
PROC: B32R1ZZ Computerized Tomography (CT Scan) of Intracranial Arteries using Low Osmolar Contrast (ICD-10-PCS; 2025-04-05)
DX: M50.01 Cervical disc disorder with myelopathy, high cervical region (principal); G81.94 Hemiplegia, unspecified affecting left nondominant side; G45.0 Vertebro-basilar artery syndrome; F32.A Depression, unspecified; I12.9 Hypertensive chronic kidney disease with stage 1 through stage 4 chronic kidney disease, or unspecified chronic kidney disease; N18.32 Chronic kidney disease, stage 3b; G45.9 Transient cerebral ischemic attack, unspecified; M50.022 Cervical disc disorder at C5-C6 level with myelopathy; I95.1 Orthostatic hypotension; I49.5 Sick sinus syndrome; Z86.718 Personal history of other venous thrombosis and embolism; Z95.0 Presence of cardiac pacemaker
CPT/HCPCS: 36415; 70450; 70496; 70498; 70551; 71045; 72141; 80048; 80053; 80061; 80305; 81003; 82948; 83036; 83605; 83735; 84100; 84145; 84443; 84484; 85025; 85610; 85651; 85730; 86885; 86900; 86901; 87081; 92508; 92616; 93005; 93306; 96361; 96374; 97110; 97116; 97162; 97530; 99285; G0378; J2405; J7030; J7512; J8597; Q9967

== ENCOUNTER 2025-04-25 09:25 | Inpatient (IN) | payer MEDICAID ==
[2025-04-25] VITALS (16 sets, daily range): BP systolic 122–177; BP diastolic 75–97; PULSE 60–89; RESP 14–20; TEMP 97.5–97.9; O2SAT 93–100
[~2025-04-25] VITALS: Ht 175.3 cm; Wt 86.5 kg
[~2025-04-25 09:25] MED LIST: ACET-75 PO; APIX5TAB3 PO; ATOR40TA72 PO; BUPIVAcaine 2.5mg/ml inj 50ml vial (contains preservative) ONE; FLUD0.1T2 PO; GABA300C PO; LOSA50TA64 PO; PANT40TA54 PO; SERT-433 PO; TAMS-55 PO; bacitracin 15gm ointment TP ONE; gelatin sponge, absorbable (Gelfoam 100) sponge TP ONE; gentamicin 40 MG/1 ML inj ONE
[2025-04-25 11:14] LABS: MEAN PLATELET VOLUME 8.6 FL (7.4-10.4); RED CELL DISTRIBUTION WIDTH 14.6 % (11.5-14.5)
[2025-04-25] MEDS ORDERED: MECL-302 PO (11:24)
[2025-04-25 11:31] LABS: CREATININE 1.61 MG/DL (0.60-1.10); TOTAL CARBON DIOXIDE 27.6 MMOL/L (24-32); eCRCL 48 ML/MIN; eGFR 44 ML/MIN
[2025-04-25] MEDS: ringers solution, lacted 1,000 ML IV SCH ×2 (11:37→19:21)
[2025-04-25] MEDS ORDERED: ondansetron/PF 4mg/2ml inj IV PRN ×2 (12:15→17:05)
[2025-04-25] MEDS ORDERED: hydrALAZINE 20mg/ml inj. IV PRN (12:15)
[2025-04-25] MEDS ORDERED: fentaNYL/PF 50MCG/1 ML 2ML syringe IV PRN (12:15)
[2025-04-25] MEDS ORDERED: HYDROmorphone/PF 0.2 MG/ML SYRINGE IV PRN (12:15)
[2025-04-25] MEDS ORDERED: labetalol 20mg/4ml (5mg/ml) syringe IV PRN (12:15)
[2025-04-25] MEDS ORDERED: rocuronium 10mg/ml inj IV ONE (12:22)
[2025-04-25] MEDS ORDERED: fentaNYL /PF 50mcg/ml 5ml ampule ONE (12:22)
[2025-04-25] MEDS ORDERED: MIDAZolam 1 MG/ML 5ML VIAL ONE (12:22)
[2025-04-25] MEDS ORDERED: propofol inj 20 ML IV ONE (12:22)
[2025-04-25 12:23] LABS: APTT 27 SECONDS (22-32); INR 1.1 INR
[2025-04-25] MEDS: gelatin sponge, absorbable (Gelfoam 100) sponge TP ONE (12:55)
[2025-04-25] MEDS: gentamicin 40 MG/1 ML inj IV ONE (12:56)
[2025-04-25] MEDS: BUPIVAcaine/PF 2.5 mg/ml (0.25%) 30ml vial IJ ONE (13:29)
[2025-04-25] MEDS ORDERED: ondansetron/PF 4mg/2ml inj ONE (16:40)
[2025-04-25] MEDS ORDERED: dexamethasone sod phosphate 4mg/ml inj. ONE (16:40)
[2025-04-25] MEDS ORDERED: PCA WASTE DOCUMENTATION 1 MG ML MC SCH ×2 (17:05→17:15)
[2025-04-25] MEDS: HYDROmorphone/PF 0.2 MG/ML SYRINGE IV PRN (17:09)
[2025-04-25] MEDS: acetaminophen 1,000mg/100ml IV 100 ML IV PRN (17:10)
[2025-04-25] MEDS: fentaNYL/PF 50MCG/1 ML 2ML syringe IV PRN (17:21)
[2025-04-25] MEDS: HYDROmorph/NS 0.2 mg/ml PCA 100 ML IV SCH ×2 (19:00→21:00)
[2025-04-25] MEDS ORDERED: HYDROmorph/NS 0.2 mg/ml PCA 100 ML IV SCH (19:00)
[2025-04-25] MEDS: ceFAZolin 2gm/dext,iso 50mL 50 ML IV ONE (19:02)
[2025-04-25] MEDS: potassium CL 20mEq in D5-1/2NS 1,000 ML IV SCH (21:18)
[2025-04-26] MEDS: ceFAZolin/D5W- 1GM premix 50 ML IV SCH (00:14)
[2025-04-26 02:00] VITALS: BP 167/81; PULSE 91; RESP 12; TEMP 97.6; O2SAT 94
[2025-04-26 04:01] LABS: MEAN PLATELET VOLUME 8.3 FL (7.4-10.4); RED CELL DISTRIBUTION WIDTH 14.1 % (11.5-14.5)
[2025-04-26 04:16] LABS: TOTAL CARBON DIOXIDE 24.2 MMOL/L (24-32)
[2025-04-26] MEDS ORDERED: HYDROcodone/acetaminophen 10/325mg tab PO PRN (05:00)
[2025-04-26] MEDS ORDERED: magnesium hydroxide 30ml (MOM) UD suspension PO PRN (05:00)
[2025-04-26 06:00] VITALS: BP 149/75; PULSE 82; RESP 16; TEMP 97.6; O2SAT 93
[2025-04-26] MEDS: PCA WASTE DOCUMENTATION 1 MG ML MC SCH (06:35)
[2025-04-26] MEDS: HYDROcodone/acetaminophen 10/325mg tab PO PRN (07:03)
[2025-04-26] MEDS: docusate sod 100mg capsule PO SCH (07:16)
[2025-04-26 08:00] VITALS: RESP 16; O2SAT 93
[2025-04-26 10:00] VITALS: BP 123/59; PULSE 83; RESP 14; TEMP 97.8; O2SAT 96
[2025-04-26 18:30] VITALS: BP 142/70; PULSE 75; RESP 18; TEMP 98.1; O2SAT 98
[2025-04-26 22:00] VITALS: BP 162/75; PULSE 84; RESP 18; TEMP 97.7; O2SAT 96
[2025-04-27] MEDS: hydrALAZINE 20mg/ml inj. IV PRN (05:37)
[2025-04-27 06:00] VITALS: BP 180/87; PULSE 67; RESP 17; TEMP 97.6; O2SAT 95
[2025-04-27 07:36] VITALS: BP 176/88; PULSE 69
--- NOTE | 2025-04-27 08:48 | VASCULAR REPORT ---
Intraoperative images Clinical History: Intraoperative findings. Comparison: None Findings /impression: Intraoperative images of the cervical spine. Please correlate with surgical report. 63.4 seconds fluoroscopy time. 11.4 mGy cumulative radiation dose.
[2025-04-27 10:00] VITALS: BP 122/86; PULSE 66; RESP 18; TEMP 98.2; O2SAT 96
[2025-04-27 14:07] LABS: MEAN PLATELET VOLUME 8.1 FL (7.4-10.4); RED CELL DISTRIBUTION WIDTH 14.5 % (11.5-14.5)
[2025-04-27 14:08] VITALS: RESP 15
--- NOTE | 2025-05-03 08:33 | VASCULAR REPORT ---
Right lower extremity venous duplex Clinical History: Comparison: VASC VL VENOUS on DOS: 04/25/25 Findings: Duplex Doppler evaluation of the deep venous systems of the right lower extremity from the common femoral veins to the popliteal veins including color Doppler and spectral/pulsed waveform analysis was performed. RIGHT SIDE: The common femoral vein demonstrates appropriate compressibility and waveform variability. There is compressibility/patency of the great saphenous vein at the proximal thigh. The femoral vein demonstrates appropriate compressibility and waveform variability. The deep femoral vein demonstrates appropriate compressibility and waveform variability. The popliteal vein demonstrates appropriate compressibility and waveform variability. There is normal compressibility at the tibioperoneal trunk. LEFT SIDE: Scanned for comparison and shows the common femoral vein demonstrates appropriate compressibility and waveform variability. Impression: 1. No right femoropopliteal venous thrombosis.
--- NOTE | 2025-05-11 15:35 | OPERATIVE REPORT ---
Operative Report Providers to CC ~ Date of Procedure: Apr 25, 2025 Pre-Operative Diagnosis: Cervical Myelopathy , Cervical spinal stenosis Post-Operative Diagnosis SAME as PRE-Op Procedure Performed Anterior cervical discectomy nand fusion C3-C4 and C4-C5 with alfatech cages and screws Surgeon: Francesca Lebron MD Screener And Blender Operator None Anesthesiologist: Olegario Cuevas Type of Anesthesia: General Findings: As per post op diagnosis Complications None Estimated Blood Loss: 20 cc Specimen Removed: None Description of Procedure: The patient was brought to the operating table, was placed in the stretcher beside the operating table. ?Large-bore peripheral IVs were put in place. ?Anesthesia was induced for IV sedation. ?The patient was intubated through orotracheal intubation. The patient was intubated without any mobilization of the neck. Maintaining good stabilization and after this central line, arterial line and Garcia catheter were put in place, ? The patient was then placed in a donut hogshead cooper and a shoulder roll as well as a smaller neck roll to stabilize the neck in slight lordosis. All pressure points were padded and patient secures. Hair was removed and the anterior cervical region was prepped and draped in the usual fashion.??A transverse incision was performed in anterior cervical region from the midline towards the sternocleidomastoid muscle on the right comprising the skin and subcutaneous tissue and hemostasis was revised with bipolar coagulation. ??The platysma muscle was incised vertically and was dissected from the surrounding tissues, especially the anterior border of the sternocleidomastoid muscle superiorly and inferiorly. Dissection was continued medial to the carotid sheath and the dissection was carried out retracting the pharynx and larynx medially and the sternocleidomastoid muscle and carotid sheath laterally. The mid cervical aponeurosis was then incised and the retropharyngeal space and prevertebral space was entered. The longus valorie muscles were visualized then detached from the anterior aspect of the vertebral bodies. ??An 18-gauge needle was placed in the space to further confirm the correct level at C3-C4 and then the dissection of the longus valorie muscles were carried out laterally exposing the anterior aspect of C5. ?Trimline retractors were put in place to maintain the retraction of the longus valorie muscles laterally and then vertebral body Conover pins/posts were placed at C4 and C5 vertebral body. Retractor was put in place to stabilize the spine. The anterior aspect of the anterior longitudinal ligament and the annulus fibrosis of C3-C4 was incised with electro knife and 15 blade and the contents of the disks with pituitary forceps and curettes adequately down to the posterior longitudinal ligament.??Then, at this point, the contents of the disc at C3-C4 was resected with the help curettes and pituitary forceps and of the high speed drill and mastic device in its entirety until the spinal canal was completely decompressed and the structures were visualized of the dura mater that was intact and at this point then the posterior aspect of the endplates and uncovertebral processes were removed with right angle curettes, and Kerrison 1, 2 and 3 mm?the endplates were prepared for grafting the inferior endplate of C3 and superior endplate of C4. The trial for the intervertebral cage was introduc ed with help of X rays visualization.?introducer with the help of C-spine x-rays with anterior and lateral projections to span between the inferior endplate of C3 and the superior endplate of C4.??After good decompressed was achieved, an appropriate size Alfatech cage was then filled with combine autograft/allograft ??Fluoroscopy was used to ensure good placed alfatech cage placement that was introduced with special introducer and gentle tapping maneuvers monitor with lateral c spine X rays.?Using Awl tool perforation were performed through the channels of the cage superiorly and inferiorly into the vertebral bodies of C3 and c4 and self tapping screws 16mm length, 3.5 mm diameter were placed trough the cage into the vertebral bodies of c3 and c4 through the endplates securing the implant. After AP and lateral X rays were completed and the introducer was removed, the hemostasis was revised with bipolar coagulation and saline solution. The retractors were removed and repositioned at the C4-C5 level were the exact same procedure was performed to perform the discectomy and cage placement at C4-C5 level. ?The platysma muscle was closed with interrupted suture of 2-0 Vicryl. The skin was closed in two layers with 2-0 Vicryl , then sheyla and opsite.?? the patient was then taken to the recovery room in stable general and neurological conditions. To continue his care. The neurological condition remained stable. No complications FRANCESCA HAGAN MD May 11, 2025 15:35
--- NOTE | 2025-05-11 15:47 | PROGRESS NOTE ---
Progress Progress Note: This n a note for 04/26/2025 Doing well No pain Swallowing ok No new neurological edficits WOUND HEALING WELL AMBULATE TODAY START WORK WITH PT ADVANCE DIET Exam General Appearance: alert, no apparent distress GI Physical Exam: normal palpation Wound General Appearance: Well Approximated Problem\Assessment\Plan Problems/Diagnosis: (1) Cervical disc disease with myelopathy Status: Acute Assessment & Plan: advance diet ambulate with PT Pain control Dietary Evaluation Comments: S 04/30 To provide initial assessment on above date. FRANCESCA HAGAN MD May 11, 2025 15:47
--- NOTE | 2025-05-11 15:52 | DISCHARGE SUMMARY ---
Discharge Summary Providers to CC ~ Discharge Summary Assessment Patient with history of cervical myelopathy admitted for anterior cervical discectomy and fusion C3 trough C5 for decompression of the spinal cord and nerve roots Admission Diagnosis: Cervical Myelopathy , Cervical spinal stenosis Hospital Course DATE OF ADMISSION: DATE OF DISCHARGE: Discharge Diagnosis\Comment: s/p Cervical discectomy and fusion C3 trough C5 Operations\Procedures: Anterior cervical discectomy and fusion C3-C4 and C4-C5 Consultants: None Complications: None Condition on DC: Stable Discharge Summary: Patient underwent ACDF C3-C4 and C4-C5 for decompression of the spinal cord and treatment of cervical myelopathy. Did well . Stable Ambulating independently with walker Able to take care of his needs Accepting food ok Stable for discharge home on self care. *Problems/Diagnosis: (1) Cervical disc disease with myelopathy Status: Acute Total Time Spent on D/C: Up to 30 Minutes FRANCESCA HAGAN MD May 11, 2025 15:52
== END 2025-04-27 16:07 | disposition home or self-care (01) | DRG 321 ==
LOC: PAS IN 09:25 → ORTHO 4S 17:45
PROVIDERS: ADMIT Neurological Surgery; ATTEND Neurological Surgery
PROC: 0RT30ZZ Resection of Cervical Vertebral Disc, Open Approach (ICD-10-PCS; 2025-04-25)
PROC: 00NW0ZZ Release Cervical Spinal Cord, Open Approach (ICD-10-PCS; 2025-04-25)
PROC: 0RG20A0 Fusion of 2 or more Cervical Vertebral Joints with Interbody Fusion Device, Anterior Approach, Anterior Column, Open Approach (ICD-10-PCS; principal; 2025-04-25 12:42)
DX: M48.02 Spinal stenosis, cervical region (principal); M50.01 Cervical disc disorder with myelopathy, high cervical region; I12.9 Hypertensive chronic kidney disease with stage 1 through stage 4 chronic kidney disease, or unspecified chronic kidney disease; N18.30 Chronic kidney disease, stage 3 unspecified; I65.23 Occlusion and stenosis of bilateral carotid arteries; I95.1 Orthostatic hypotension; M40.202 Unspecified kyphosis, cervical region; Z95.0 Presence of cardiac pacemaker; I25.2 Old myocardial infarction; Z86.718 Personal history of other venous thrombosis and embolism; Z88.5 Allergy status to narcotic agent; Z89.022 Acquired absence of left finger(s); Z84.19 Family history of other disorders of kidney and ureter; Z82.49 Family history of ischemic heart disease and other diseases of the circulatory system; Z86.73 Personal history of transient ischemic attack (TIA), and cerebral infarction without residual deficits
CPT/HCPCS: 36415; 72040; 80051; 80053; 82948; 84145; 85025; 85610; 85730; 87081; 93971; 97116; 97161; 97530; A4215; A4615; A4618; A6258; A6402; A6449; A7000; C1713; C1758; C1889; G0378; J0131; J0360; J0690; J1100; J1171; J1580; J1644; J2250; J2405; J2704; J3010; J3480; J3490; J7050; J7120